=== PATIENT | female | born 1950 | race Hispanic/Latino ===

== ENCOUNTER 2017-06-10 06:22 | Inpatient (IN) | payer MEDICARE, OTHER ==
[2017-06-10 06:30] VITALS: BMI 23.0
[2017-06-10 07:13] LABS: BLOOD UREA NITROGEN 20 mg/dl (7-17); CALCIUM 10.1 mg/dL (8.4-10.2); CARBON DIOXIDE 27 mmol/L (22-30); CHLORIDE 106 mmol/L (98-107); GFR AFRICAN-AMERICAN > 60; GLUCOSE,RANDOM 118 mg/dL (65-105); POTASSIUM 4.2 MMOL/L (3.6-5.0); SODIUM 143 mmol/l (132-148)
--- NOTE | 2017-06-10 07:14 | CP.PCM.HP ---
History of Present Illness - History of Present Illness History of Present Illness: CC: HIP PAIN, HERE FOR L TOTAL HIP HPI: Pleasant 66F PMH OA, MIXED HLD, NIDDM with polyneuropathy, mixed HYPERLIPIDEMIA, Nontoxic multinodular goiter, presents with over 6 months of constant, sharp, moderate to severe hip pain, worsening on ambulation, failing outpatient conservative therapy. L total hip replacement today. METs > 4. Denies any chest pain or dyspnea at rest or on exertion. No problems with anesthesia in the past. No false teeth. Labs, EKG, Chest XR reviewed. Type and Cross pending. Repeating Chem 7. Primary Clearance provided by Dr. Nate Gilbert MD. Patient is low risk for moderate risk procedure, medically stable for surgery at this time. VSS. NAD. ROS: PER HPI ALL OTHER SYSTEMS REVIEWED AND NEGATIVE PMSH: APPENDECTOMY, R PARTIAL KNEE FH: DM SH: TOBACCO - 1/2 PPD 30+ YEARS, denies ETOH, IVDU MEDS: cymbalta 60 mg paroxetine 20 mg simvastatin 40 mg fenofibrate 134 mg pioglitazone-metformin 15/850 mg BID januvia 100 mg citracal and vit d NKDA 98.3 69 119/66 16 99% RA GEN: WDWN, ALERT COOPERATIVE HEENT: NCAT PERRL EOMI HEART: RRR +S1S2 NO MRG LUNG: CTAB NO WRR ABD: SOFT NT ND NO MASS NO HSM EXT: WARM WELL PERFUSED NEURO: AAOX3, SENSATION AND STRENGTH INTACT SKIN: WARM DRY PSYCH: NORMAL MOOD NORMAL AFFECT LABS REVIEWED repeat chem pending type and cross pending Pleasant 66F PMH OA, MIXED HLD, NIDDM with polyneuropathy, mixed HYPERLIPIDEMIA , Nontoxic multinodular goiter, presents with over 6 months of constant, sharp, moderate to severe hip pain, worsening on ambulation, failing outpatient conservative therapy. L total hip replacement today. METs > 4. Denies any chest pain or dyspnea at rest or on exertion. No problems with anesthesia in the past. No false teeth. Labs, EKG, Chest XR reviewed. Type and Cross pending. Repeating Chem 7. Primary Clearance provided by Dr. Sridhar FATIMA. Patient is low risk for moderate risk procedure, medically stable for surgery at this time. VSS. NAD. OA for L total hip L total hip today with Dr. Bledsoe Patient is low risk for moderate risk procedure, medically stable for surgery at this time. cont citracal and vit d NIDDM pioglitazone-metformin 15/850 mg BID januvia 100 mg ACCUCHECKS low ISS Mixed HLD simvastatin 40 mg fenofibrate 134 mg Hx Anxiety/Depression cymbalta 60 mg paroxetine 20 mg VTEppx per Ortho Present on Admission - Present on Admission Any Indicators Present on Admission: No Past Patient History - Past Medical History & Family History Past Medical History?: Yes - Past Social History Smoking Status: Current Some Days Smoker - CARDIAC Hx Cardiac Disorders: Yes Hx Hypercholesterolemia: Yes Other/Comment: hyperlipidemia - PULMONARY Hx Respiratory Disorders: No - NEUROLOGICAL Hx Neurological Disorder: No - HEENT Hx HEENT Problems: No - RENAL Hx Chronic Kidney Disease: No - ENDOCRINE/METABOLIC Hx Diabetes Mellitus Type 2: Yes - HEMATOLOGICAL/ONCOLOGICAL Hx Cancer: Yes (breast) - INTEGUMENTARY Hx Dermatological Problems: No - MUSCULOSKELETAL/RHEUMATOLOGICAL Hx Musculoskeletal Disorders: Yes Hx Arthritis: Yes Hx Osteoporosis: Yes - GASTROINTESTINAL Hx Gastrointestinal Disorders: No - GENITOURINARY/GYNECOLOGICAL Hx Genitourinary Disorders: No - PSYCHIATRIC Hx Depression: Yes - SURGICAL HISTORY Hx Surgeries: Yes Hx Appendectomy: Yes Hx Hysterectomy: Yes (partial) Hx Joint Replacement: Yes (right total knee replacement) Other/Comment: breast reduction. epidurals. fatty cyst removed from thigh and wrist - ANESTHESIA Hx Anesthesia: Yes Hx Anesthesia Reactions: No Hx Malignant Hyperthermia: No Has any member of the family had a problem w/ anesthesia?: No Meds Allergies/Adverse Reactions: Allergies Allergy/AdvReac Type Severity Reaction Status Date / Time No Known Allergies Allergy Verified 06/10/17 06:42 Results - Labs Result Diagrams: 06/10/17 06:50
[2017-06-10] MEDS ORDERED: Lactated Ringer's 1,000 ML IV ONE ×2 (07:20→09:00)
[2017-06-10] MEDS ORDERED: Bacitracin Ointment 30 GM TUBE ONE (07:28)
[2017-06-10] MEDS ORDERED: Succinylcholine 200 mg/10 ml Inj IV ONE (07:29)
[2017-06-10] MEDS ORDERED: Absorbable Gelatin Sponge Size 100 ONE (07:30)
[2017-06-10] MEDS ORDERED: Etomidate 20 mg/10ml Inj IV ONE (07:30)
[2017-06-10] MEDS ORDERED: Phenylephrine 10 mg/ml Inj ONE (07:30)
[2017-06-10] MEDS ORDERED: Thrombin Topical 5,000 IU Spray Kit ONE (07:30)
[2017-06-10] MEDS ORDERED: Lidocaine 4% (Laryng-O-Jet) Kit MM ONE (07:30)
[2017-06-10] MEDS ORDERED: ceFAZolin IV 1 gm in Dextrose 1 GM/50 ML BAG IVPB ONE (07:34)
[2017-06-10] MEDS ORDERED: Midazolam 2 MG/2 ML VIAL ONE (07:56)
[2017-06-10] MEDS ORDERED: Morphine 1 mg/ml preservative-free Inj(Duramorph) ONE (07:58)
[2017-06-10] MEDS ORDERED: Rocuronium 10 mg/ml (5 ml) ONE ×2 (08:54→10:16)
[2017-06-10] MEDS ORDERED: ePHEDrine 50 mg/ml Inj ONE ×2 (08:54→11:46)
[2017-06-10] MEDS ORDERED: Sevoflurane - Inhalation Anesthetic Liq (250 ml) ONE (09:15)
[2017-06-10] MEDS ORDERED: Sodium Chloride 0.9% 500 ML IV ONE (09:20)
[2017-06-10] MEDS ORDERED: Bupivacaine 0.25%-Epinephrine 1:200,000 (30 ml) Inj ONE (11:07)
[2017-06-10] MEDS ORDERED: SENSORCAINE 0.5% W/EPINEPHRINE 50ML MDV IJ ONE (11:08)
[2017-06-10] MEDS ORDERED: Neostigmine Methylsulfate 2 MG/2 ML ML IV ONE (11:50)
[2017-06-10] MEDS ORDERED: Neostigmine Methylsulfate 3mg/3ml Syringe IV ONE (11:50)
[2017-06-10] MEDS ORDERED: Oxycodone/Acetaminophen 5/325 mg Tab PO PRN (12:18)
--- NOTE | 2017-06-10 12:27 | PCM.SURG1 ---
Surgeon's Initial Post Op Note - Surgeon's Notes Surgeon: Pina Bledsoe MD Cellular Phone Repairer: Mary Ellen Barrera PA-C, CRNA Type of Anesthesia: General Endo Anesthesia Administered By: Dr. Sams Pre-Operative Diagnosis: Left hip DJD Operative Findings: intraoperative fluoroscopy used Post-Operative Diagnosis: same Operation Performed: 1. Left total hip replacement, anterior approach. 2. Femoral neck osteotomy. 3. Release iliopsoas tendon. 4. Autograft bone graft femoral neck and acetabulum. 5. Computer navigation Specimen/Specimens Removed: femoral head Estimated Blood Loss: EBL {In ML}: 100 Blood Products Given: N/A Drains Used: No Drains Post-Op Condition: Fair Date of Surgery/Procedure: 06/10/17 Time of Surgery/Procedure: 12:27
[2017-06-10] MEDS ORDERED: Sodium Chloride 0.9% 1,000 ML IV SCH (12:30)
[2017-06-10] MEDS ORDERED: HYDROmorphone 0.5 mg/0.5 ml ISec IVP PRN (12:37)
[2017-06-10] MEDS ORDERED: Lactated Ringer's 1,000 ML IV SCH (12:45)
--- NOTE | 2017-06-10 12:45 | PCM.ANESB3 ---
Femoral Nerve Block - Femoral Nerve Block Date of Procedure: 06/10/17 Anesthesiologist: Flaquita Pre-Procedure Diagnosis: Left Hip OA Post-Procedure Diagnosis: Same Procedure Performed: Femoral Nerve Block Left - Procedure Femoral Nerve Block: The procedure was explained to the patient that it is for the post-operative pain management. Consent was obtained after a thorough discussion with the patient regarding the benefits and possible complications of local anesthetic block of the femoral nerve at the inguinal crease area. The patient was brought to the operating room and standard monitors were applied. Time-out was held with the circulating nurse to confirm the correct surgery and the appropriate block. Under general anesthesia at the conclusion of the procedure, patient was placed in supine position with fully extended lower extremities and the left___ groin exposed. The femoral artery was then carefully palpated. The ultrasound transducer was then applied to this area in the transverse plane and the femoral nerve was visualized lateral to the femoral artery and underneath the fascia iliaca. After thorough identification, the inguinal crease area was prepped with Chloraprep. At this point, a #22 gauge Stimuplex 4-inch needle was inserted immediately lateral to the femoral artery pulse at the inguinal crease and advanced perpendicularly. The needle was inserted to the ultrasound transducer in-plane towards the femoral nerve in a [id number] direction. Needle advancement was performed carefully under direct ultrasound visualization. After negative aspiration, __2___cc of __0.25___% _bupivicaine with 1:200,000 epinephrine was injected and this was followed with __28____ cc of __0.25____ _ % __bupivicaine with 1:200,000 epinephrine . Under ultrasound guidance the local anesthetics were observed spreading below fascia iliaca and around the femoral nerve. The needle was then directed laterally below the facia iliaca above the iliacus muscle in the direction of the lateral femoral cutaneous nerve. After negative aspiration, __2___cc of __0.25___% _bupivicaine with 1:200,000 epinephrine was injected and this was followed with __18____ cc of __0.25 % __bupivicaine with 1:200,000 epinephrine . Under ultrasound guidance the local anesthetics were observed spreading below fascia iliaca in the direction of the lateral femoral cutaneous nerve. The needle was removed intact. The patient had stable vital signs, and was prepared for emergence. The patient tolerated the femoral nerve block well with stable vital signs.
--- NOTE | 2017-06-10 15:34 | RAD ---
PROCEDURE: Left Hip X-ray Radiographs. HISTORY: pt in PACU s/p left THR COMPARISON: None. FINDINGS: BONES: Expected postoperative findings following left RENÉ. JOINTS: Moderate degenerative changes right hip. SOFT TISSUES: Normal. OTHER FINDINGS: None. IMPRESSION: Satisfactory postoperative status.
[2017-06-10] MEDS: ceFAZolin 1 GM in Sodium Chloride 0.9% 100 ML IVPB SCH (17:09)
[2017-06-10] MEDS: Insulin Lispro (humaLOG) 100 Units/ml Inj SC SCH (21:37)
[2017-06-11] MEDS: ceFAZolin 1 GM in Sodium Chloride 0.9% 100 ML IVPB SCH (00:57)
[2017-06-11] MEDS: Morphine 4 MG/ML VIAL IVP PRN ×2 (03:50→14:02)
[2017-06-11 07:12] LABS: HEMATOCRIT 31.3 % (34.0-47.0); MEAN CELL VOLUME 96.9 fl (81.0-99.0); MEAN CORPUSCULAR HEMOGLOBIN 32.4 pg (27.0-31.0); MEAN CORPUSCULAR HGB CONC 33.4 g/dL (33.0-37.0); RED CELL DISTRIBUTION WIDTH 13.9 % (11.5-14.5); WHITE BLOOD COUNT 5.4 K/uL (4.8-10.8)
--- NOTE | 2017-06-11 07:46 | CP.PCM.PN ---
Subjective - Date & Time of Evaluation Date of Evaluation: 06/11/17 Time of Evaluation: 07:44 - Subjective Subjective: Patient states pain is improved with morphine, but that it is wearing off. Denies CP/SOB/dizziness/numbness/tingling/n/v. Objective - Vital Signs/Intake and Output Vital Signs (last 24 hours): Temp Pulse Resp BP Pulse Ox 97.8 F 75 20 118/63 93 L 06/11/17 05:00 06/11/17 05:00 06/11/17 05:00 06/11/17 05:00 06/11/17 05:00 - Medications Medications: Current Medications Aspirin (Ecotrin) 81 mg PO Q12H [facility] Atorvastatin Calcium (Lipitor) 20 mg PO HS [facility] Last Admin: 06/10/17 21:09 Dose: 20 mg Cholecalciferol (Vitamin D) 2,000 iu PO DAILY [facility] Docusate Sodium (Colace) 100 mg PO BID [facility] Last Admin: 06/10/17 17:09 Dose: 100 mg Duloxetine HCl (Cymbalta) 60 mg PO DAILY [facility] Fenofibrate (Tricor) 145 mg PO HS [facility] Last Admin: 06/10/17 21:09 Dose: 145 mg Sodium Chloride (Sodium Chloride 0.9%) 1,000 mls @ 50 mls/hr IV .Q20H [facility] Stop: 06/11/17 12:20 Last Admin: 06/10/17 17:12 Dose: 50 mls/hr Lactated Ringer's (Lactated Ringer's) 1,000 mls @ 100 mls/hr IV .Q10H [facility] Insulin Human Lispro (Humalog) 0 units SC ACHS [facility] PRN Reason: Protocol Last Admin: 06/10/17 21:37 Dose: Not Given Metformin HCl (Glucophage) 850 mg PO BID [facility] Last Admin: 06/10/17 17:10 Dose: 850 mg Morphine Sulfate (Morphine) 2 mg IVP Q4 PRN PRN Reason: Pain, severe (8-10) Last Admin: 06/11/17 03:50 Dose: 2 mg Ondansetron HCl (Zofran Inj) 4 mg IVP Q6 PRN PRN Reason: Nausea/Vomiting Oxycodone/Acetaminophen (Percocet 5/325 Mg Tab) 1 tab PO Q4 PRN PRN Reason: Pain, moderate (4-7) Stop: 06/13/17 12:19 Paroxetine HCl (Paxil) 20 mg PO DAILY [facility] Pioglitazone HCl (Actos) 15 mg PO BID [facility] Last Admin: 06/10/17 17:08 Dose: 15 mg Sitagliptin Phosphate (Januvia) 100 mg PO DAILY [facility] - Labs Labs: 06/11/17 06:40 06/10/17 06:50 - Extremities Exam Additional comments: Left hip: noted expected swelling, TTP to same. +ROM ankle DF/PF, sensation intact, +DP/PT pulses, calves soft NT neg homans, dressing intact, no visible drainage Assessment and Plan (1) Degenerative joint disease of left hip Assessment & Plan: POD#1 s/p left THR, anterior approach -PT/OT -patient requests home with services, has 5 stairs btw levels of house -VTE proph with aspirin 81mg BID per Dr. Bledsoe -[facility] -IS -d/c planning -labs in am -d/w Dr. Bledsoe, agrees with above Status: Acute (2) Acute blood loss anemia Assessment & Plan: pre op hgb 14 hemodynamically stable, monitor Status: Acute (3) Diabetes mellitus Assessment & Plan: monitor BS cont home meds when jace PO Status: Acute
--- NOTE | 2017-06-11 07:50 | CP.PCM.PN ---
Subjective - Date & Time of Evaluation Date of Evaluation: 06/11/17 Time of Evaluation: 10:00 - Subjective Subjective: Patient seen and examined bedside. Complains of pain to left hip radiating to anterior groin. Slightly drowsy . With urinary retention overnight requiring straight catheterization. Hemodynamically stable, Tmax 99.7 Objective - Vital Signs/Intake and Output Vital Signs (last 24 hours): Temp Pulse Resp BP Pulse Ox 97.8 F 75 20 118/63 93 L 06/11/17 05:00 06/11/17 05:00 06/11/17 05:00 06/11/17 05:00 06/11/17 05:00 - Medications Medications: Current Medications Aspirin (Ecotrin) 81 mg PO Q12H REPLACED BY [facility] Atorvastatin Calcium (Lipitor) 20 mg PO HS REPLACED BY [facility] Last Admin: 06/10/17 21:09 Dose: 20 mg Cholecalciferol (Vitamin D) 2,000 iu PO DAILY REPLACED BY [facility] Docusate Sodium (Colace) 100 mg PO BID REPLACED BY [facility] Last Admin: 06/10/17 17:09 Dose: 100 mg Duloxetine HCl (Cymbalta) 60 mg PO DAILY REPLACED BY [facility] Fenofibrate (Tricor) 145 mg PO HS REPLACED BY [facility] Last Admin: 06/10/17 21:09 Dose: 145 mg Sodium Chloride (Sodium Chloride 0.9%) 1,000 mls @ 50 mls/hr IV .Q20H REPLACED BY [facility] Stop: 06/11/17 12:20 Last Admin: 06/10/17 17:12 Dose: 50 mls/hr Lactated Ringer's (Lactated Ringer's) 1,000 mls @ 100 mls/hr IV .Q10H REPLACED BY [facility] Insulin Human Lispro (Humalog) 0 units SC ACHS REPLACED BY [facility] PRN Reason: Protocol Last Admin: 06/10/17 21:37 Dose: Not Given Metformin HCl (Glucophage) 850 mg PO BID REPLACED BY [facility] Last Admin: 06/10/17 17:10 Dose: 850 mg Morphine Sulfate (Morphine) 2 mg IVP Q4 PRN PRN Reason: Pain, severe (8-10) Last Admin: 06/11/17 03:50 Dose: 2 mg Ondansetron HCl (Zofran Inj) 4 mg IVP Q6 PRN PRN Reason: Nausea/Vomiting Oxycodone/Acetaminophen (Percocet 5/325 Mg Tab) 1 tab PO Q4 PRN PRN Reason: Pain, moderate (4-7) Stop: 06/13/17 12:19 Paroxetine HCl (Paxil) 20 mg PO DAILY REPLACED BY [facility] Pioglitazone HCl (Actos) 15 mg PO BID REPLACED BY [facility] Last Admin: 06/10/17 17:08 Dose: 15 mg Sitagliptin Phosphate (Januvia) 100 mg PO DAILY REPLACED BY [facility] - Labs Labs: 06/11/17 06:40 06/10/17 06:50 - Constitutional Appears: Non-toxic, No Acute Distress, Other (drowsy ) - Head Exam Head Exam: ATRAUMATIC, NORMAL INSPECTION, NORMOCEPHALIC - Eye Exam Eye Exam: EOMI, Normal appearance, PERRL Pupil Exam: NORMAL ACCOMODATION - ENT Exam ENT Exam: Mucous Membranes Moist, Normal Exam - Neck Exam Neck Exam: Full ROM, Normal Inspection - Respiratory Exam Respiratory Exam: Clear to Ausculation Bilateral, NORMAL BREATHING PATTERN. absent: Rales, Rhonchi, Wheezes - Cardiovascular Exam Cardiovascular Exam: REGULAR RHYTHM, RRR, +S1, +S2. absent: JVD - GI/Abdominal Exam GI & Abdominal Exam: Soft, Normal Bowel Sounds. absent: Distended, Guarding, Tenderness, Rebound Additional comments: suprapubic fullness - Rectal Exam Rectal Exam: Deferred - Extremities Exam Extremities Exam: absent: Pedal Edema Additional comments: left hip surgical incision with acquacell dressing in place - Back Exam Back Exam: NORMAL INSPECTION - Neurological Exam Neurological Exam: Alert, Awake, CN II-XII Intact, Oriented x3 Additional comments: drowsy - Psychiatric Exam Psychiatric exam: Normal Affect - Skin Skin Exam: Dry, Pallor, Warm Assessment and Plan - Assessment and Plan (Free Text) Assessment: 66F PMH OA, MIXED HLD, NIDDM with polyneuropathy, mixed HYPERLIPIDEMIA, Nontoxic multinodular goiter, presented with over 6 months of constant, sharp, moderate to severe hip pain, worsening on ambulation, failing outpatient conservative therapy.She is s/p L total hip replacement with Dr. Duval 06/10 1.Osteoarthritis of L hip s/p left THR # POD 1 pain is controlled Ortho on consult Continue pain management Start PT DVt prophylaxis with ADSA 81 mg PO BID incentive spirometry 2.NIDDM controlled continue home meds Accuchecks, insulin coverage diabetic diet 3.Acute blood loss anemia Hgb dropped to 10 continue to monitor 4.Mixed HLD simvastatin 40 mg fenofibrate 134 mg 5.Anxiety/Depression cymbalta 60 mg paroxetine 20 mg 6.VTEppx ASa 81 mg po BID
[2017-06-11 08:04] LABS: BLOOD UREA NITROGEN 14 mg/dl (7-17); CALCIUM 8.5 mg/dL (8.4-10.2); CARBON DIOXIDE 25 mmol/L (22-30); CHLORIDE 105 mmol/L (98-107); GFR AFRICAN-AMERICAN > 60; GLUCOSE,RANDOM 129 mg/dL (65-105); POTASSIUM 3.7 MMOL/L (3.6-5.0); SODIUM 136 mmol/l (132-148)
[2017-06-11] MEDS: Insulin Lispro (humaLOG) 100 Units/ml Inj SC SCH ×4 (08:16→21:54)
--- NOTE | 2017-06-11 08:47 | OP ---
PROCEDURE DATE: 06/10/2017 PREOPERATIVE DIAGNOSIS: Primary osteoarthritis of the left hip. POSTOPERATIVE DIAGNOSIS: Primary osteoarthritis of the left hip. PROCEDURE: 1. Left total hip replacement, arthroplasty, anterior approach. 2. Femoral neck osteotomy. 3. Release of iliopsoas tendon. 4. Autograft bone graft to the acetabulum and proximal femur. 5. Computer navigation with [employer]. SURGEON: Ji Bledsoe M.D. SHOE LASTER: Giovana Reaves. SECOND INSPECTOR ELEVATORS: Suraj Arvizu PA-C. TYPE OF ANESTHESIA: Spinal and general anesthesia. ANESTHESIA ADMINISTERED BY: Kemal Sams MD ESTIMATED BLOOD LOSS: 105 mL. COMPLICATIONS: None. DRAINS: None. OPERATIVE INDICATIONS: Shiloh Solano is a woman who has severe left hip pain and pain in the groin. The patient had a spinal opinion when the spinal surgeon claimed that the patient requires replacement arthroplasty. Pros, cons, risks, and benefits of total hip replacement were discussed. The concept of leg length inequality, mechanical failure, infection, thromboembolic disease, secondary or tertiary surgery was discussed. The patient can no longer withstand the discomfort and wished the surgery to be accomplished. Informed consent is obtained in the holding area and in the office after myself and in the presence of her ex-, Randy Gonzalez. DESCRIPTION OF PROCEDURE: After having obtained the informed consent, after having identified the site and side of the procedure, a critical pause/time-out, after the satisfactory induction of the anesthetic, the patient is identified as Shiloh Solano. She is placed in the AMIS traction position. The left lower extremity is prepped and draped in usual fashion for lower extremity surgery. I had explained to the patient that she will have incisions on the contralateral right hip for the computer navigation. This having been accomplished, under the surgeon's direction, the fluoroscope is positioned. Video images are generated, and therapeutic decisions are made therefrom. The patient began on the procedure of a short left lower extremity by approximately 1/2 inch. Attempt will be made to make that up. This having been accomplished, the lower extremity is prepped and free draped in usual fashion for lower extremity surgery. The right pelvis is draped as well. This having been accomplished, using a #11 blade, two fingerbreadths posterior to the ASIS, the first pin is introduced, second pin is introduced through the guide, and the mount of the camera is introduced. This having been accomplished, the camera mount is adjusted appropriately. Attention is turned to the left hip. After sterilely prepping and draping, after having identified the side, site, and procedure, and a critical pause/timeout, the incision is described 3 fingerbreadths posterior to the ASIS, 1 fingerbreadth distal and 4 fingerbreadths distal to that. This is approximately 4.5 to 5 inch incision, the skin incision is carried down through the skin and subcutaneous tissue. The fascia is identified and is divided using the electrocautery. The tensor fascia and femoris muscle was taken down from the fascia and the Medacta retractor is placed. At this point in time, the fat pad over it is identified and released and the reflected head of rectus femoris is released. At this point, the fascia below the rectus femoris muscle is developed and the retractor is placed again deeper. At this point in time, the anterolateral circumflex vessels are identified and controlled, this is controlled with the Aquamantys and then they are divided and they are controlled with suture ligature. This having been accomplished, the triangular capsule with the lower extremity in external rotation, an incision is described far laterally superficial distal to the acetabulum and in a triangular fashion going distally to the lesser tuberosity. This is carried back laterally and the capsular flap is tagged. This having accomplished, the trochanteric tubercle is identified and the trochanter is mildly skeletonized through the position of the registration tack. Registration tack is introduced in an anterolateral fashion. At this point in time, the registration tack is accomplished. At this point in time under the surgeon's direction, fluoroscope is positioned, femoral neck osteotomy is accomplished and is divided. The femoral neck is removed from the acetabulum and this is removed. Great care is taken to place the Medacta retractors. A Ray-Jennifer sponge is placed posteriorly. Femoral neck osteotomy is accomplished. This having been accomplished, the acetabulum is debrided, the pulvinar is debrided, the acetabulum is exposed. The anterior and posterior labrum are resected. This having been accomplished, reaming starts out with 42 mm up to 48 mm. The pulvinar is removed. The medial reaming is accomplished with the posterior reaming and then the reaming in the appropriate position of approximately 45 degrees and 15-20 degrees. This having been accomplished, reaming commences. Autograft bone graft is saved. At this point in time,trialing is accomplished. Under surgeon's direction, the fluoroscope is positioned and found to be in excellent position. At this point in time, the 48-mm reamer is loaded and computer navigation is accomplished using the Intellijoint with abduction of approximately 44 degrees and anteversion of approximately 16 degrees. This having been accomplished, a cup is impacted and at this point in time, the computer navigation continues. Attention is now turned to the femur. The pubofemoral ligament is released with the femur in external rotation. The ischiofemoral ligament is released as is the area in the conjoint tendon in the piriformis fossa. This is released and at this point in time, the trochanteric splint is accomplished. The position of the cup is guaranteed and the verification is offered on the Intellijoint. This having been accomplished, the femur is introduced. The rat-tail rasp is introduced. Reaming is carried up to #4, broaching to #4 and the hip is reduced and found to be stable in all planes with the dual mobility construct with the standard neck and neutral head and 48-mm outer bearing. This having been accomplished, the stem femoral component is impacted. The ceramic is impacted with the outer bearing, is reduced and found to be stable in all planes. Wound is thoroughly irrigated. Position on the x-ray reveals that the left lower extremity is lengthened just a bit, which was our preoperative intent. Wound is thoroughly irrigated. It should be noted that prior to impaction, the cup autograft bone grafting had been accomplished. After release of the pubofemoral ligament, the iliopsoas tendon is released as well. This having been accomplished, the capsule is replaced. The lateral musculature is repaired using Vicryl. Closure of the rectus muscle sheath, fascia is with 0 Quill followed by 0 Quill, 2-0 Vicryl, and myriam for skin drain is employed. Silvio Buck compression dressing is applied. Ji Bledsoe MD
[2017-06-11 17:19] VITALS: O2SAT 95
--- NOTE | 2017-06-12 07:12 | CP.PCM.PN ---
Subjective - Date & Time of Evaluation Date of Evaluation: 06/12/17 Time of Evaluation: 07:09 - Subjective Subjective: ortho f/u Dr. Bledsoe Patient states pain in hip is still severe at times. C/o feeling tired. Denies CP/SOB/dizziness/palp/numbness/tingling Objective - Vital Signs/Intake and Output Vital Signs (last 24 hours): Temp Pulse Resp BP Pulse Ox 99.4 F 82 20 116/63 95 06/11/17 17:18 06/11/17 17:18 06/11/17 17:18 06/11/17 17:18 06/11/17 17:18 - Medications Medications: Current Medications Aspirin (Ecotrin) 81 mg PO Q12H [facility] Last Admin: 06/11/17 21:50 Dose: 81 mg Atorvastatin Calcium (Lipitor) 20 mg PO HS [facility] Last Admin: 06/11/17 21:50 Dose: 20 mg Cholecalciferol (Vitamin D) 2,000 iu PO DAILY [facility] Last Admin: 06/11/17 08:21 Dose: 2,000 iu Docusate Sodium (Colace) 100 mg PO BID [facility] Last Admin: 06/11/17 16:42 Dose: 100 mg Duloxetine HCl (Cymbalta) 60 mg PO DAILY [facility] Last Admin: 06/11/17 08:20 Dose: 60 mg Fenofibrate (Tricor) 145 mg PO HS [facility] Last Admin: 06/11/17 21:50 Dose: 145 mg Lactated Ringer's (Lactated Ringer's) 1,000 mls @ 100 mls/hr IV .Q10H [facility] Insulin Human Lispro (Humalog) 0 units SC ACHS [facility] PRN Reason: Protocol Last Admin: 06/11/17 21:54 Dose: Not Given Metformin HCl (Glucophage) 850 mg PO BID [facility] Last Admin: 06/11/17 16:42 Dose: 850 mg Morphine Sulfate (Morphine) 2 mg IVP Q4 PRN PRN Reason: Pain, severe (8-10) Last Admin: 06/11/17 14:02 Dose: 2 mg Ondansetron HCl (Zofran Inj) 4 mg IVP Q6 PRN PRN Reason: Nausea/Vomiting Oxycodone/Acetaminophen (Percocet 5/325 Mg Tab) 1 tab PO Q4 PRN PRN Reason: Pain, moderate (4-7) Stop: 06/13/17 12:19 Last Admin: 06/11/17 08:14 Dose: 1 tab Paroxetine HCl (Paxil) 20 mg PO DAILY [facility] Last Admin: 06/11/17 08:21 Dose: 20 mg Pioglitazone HCl (Actos) 15 mg PO BID [facility] Last Admin: 06/11/17 16:42 Dose: 15 mg Sitagliptin Phosphate (Januvia) 100 mg PO DAILY [facility] - Labs Labs: 06/11/17 06:40 06/11/17 06:40 - Extremities Exam Additional comments: LLE: swelling slightly improved, control room tender, moving ankle more freely today. + ROM ankle/toes, sensation intact, +DP/PT pulses, calves soft NT neg homans, dressing intact, no erythema Assessment and Plan (1) Degenerative joint disease of left hip Assessment & Plan: POD#2 s/p left anterior THR PT/OT patient now states preference is rehab, referral pending VTE proph with ASA encourage OOB f/u labs d/c planning d/w Dr. Bledsoe, agrees with above Status: Acute (2) Acute blood loss anemia Assessment & Plan: f Status: Acute (3) Diabetes mellitus Status: Chronic
[2017-06-12] MEDS: Insulin Lispro (humaLOG) 100 Units/ml Inj SC SCH ×2 (07:30→11:35)
[2017-06-12 08:08] VITALS: BP 112/64; PULSE 87; RESP 19; TEMP 97.8
--- NOTE | 2017-06-12 08:49 | RAD ---
PROCEDURE: Fluoroscopy up to 1 hr. HISTORY: COMPARISON: None TECHNIQUE: Standard protocol for this study/examination. FINDINGS: Total fluoroscopic time (continuous mode) utilized during the procedure: 25.9 seconds. IMPRESSION: Less than 1 hr fluoroscopic time utilized during performance of the procedure.
[2017-06-12] MEDS ORDERED: PIOGLITAZONE HCL PO SCH (09:00)
[2017-06-12] MEDS ORDERED: METFORMIN HCL PO SCH (09:00)
--- NOTE | 2017-06-12 11:34 | CP.PCM.DIS ---
Provider - Provider Date of Admission: 06/10/17 12:18 Attending physician: Jayden March MD Primary care physician: Ji Bledsoe III, MD Consults: Ortho : DR Bledsoe Time Spent in preparation of Discharge (in minutes): 25 Diagnosis - Discharge Diagnosis (1) Primary osteoarthritis of left hip Status: Chronic (2) Status post THR (total hip replacement) Status: Acute (3) Acute blood loss anemia Status: Acute (4) Diabetes mellitus Status: Chronic Hospital Course - Lab Results Lab Results: Most Recent Lab Values WBC 5.4 K/uL (4.8-10.8) 06/11/17 06:40 RBC 3.23 Mil/uL (3.80-5.20) L 06/11/17 06:40 Hgb 10.5 g/dL (12.0-16.0) L 06/11/17 06:40 Hct 31.3 % (34.0-47.0) L 06/11/17 06:40 MCV 96.9 fl (81.0-99.0) 06/11/17 06:40 MCH 32.4 pg (27.0-31.0) H 06/11/17 06:40 MCHC 33.4 g/dL (33.0-37.0) 06/11/17 06:40 RDW 13.9 % (11.5-14.5) 06/11/17 06:40 Plt Count 164 K/uL (130-400) 06/11/17 06:40 Sodium 136 mmol/l (132-148) 06/11/17 06:40 Potassium 3.7 MMOL/L (3.6-5.0) 06/11/17 06:40 Chloride 105 mmol/L (98-107) 06/11/17 06:40 Carbon Dioxide 25 mmol/L (22-30) 06/11/17 06:40 Anion Gap 10 (10-20) 06/11/17 06:40 BUN 14 mg/dl (7-17) 06/11/17 06:40 Creatinine 0.7 mg/dL (0.7-1.2) 06/11/17 06:40 Est GFR ( Amer) > 60 06/11/17 06:40 Est GFR (Non-Af Amer) > 60 06/11/17 06:40 POC Glucose (mg/dL) 218 mg/dL (65-110) H 06/12/17 11:14 Random Glucose 129 mg/dL (65-105) H 06/11/17 06:40 Calcium 8.5 mg/dL (8.4-10.2) 06/11/17 06:40 Blood Type O POSITIVE 06/10/17 06:50 Blood Type Confirm O POSITIVE 06/10/17 07:20 Antibody Screen Negative 06/10/17 06:50 Crossmatch See Detail 06/10/17 06:50 BBK History Checked No verified bt 06/10/17 06:50 - Hospital Course Hospital Course: 66F PMH OA, MIXED HLD, NIDDM with polyneuropathy, mixed HYPERLIPIDEMIA, Nontoxic multinodular goiter, presented with over 6 months of constant, sharp, moderate to severe hip pain, worsening on ambulation, failing outpatient conservative therapy.She is s/p L total hip replacement with Dr. Duval 06/10 1.Primary Osteoarthritis of L hip s/p left THR pain is controlled Ortho on consult and following pt Continue pain management PT/OT DVt prophylaxis with ASA 81 mg PO BID incentive spirometry d/c to TCU for further Rehab 2.NIDDM type II controlled continue home meds Accuchecks, insulin coverage diabetic diet 3.Acute blood loss anemia Hgb dropped to 10 continue to monitor Venofer B12 shot start Ferrous PO 4.Mixed Hyperlipidemia simvastatin 40 mg fenofibrate 134 mg 5.Anxiety/Depression cymbalta 60 mg paroxetine 20 mg 6.VTE ppx ASa 81 mg po BID Discharge Exam - Head Exam Head Exam: ATRAUMATIC, NORMAL INSPECTION, NORMOCEPHALIC - Eye Exam Eye Exam: EOMI, Normal appearance, PERRL Pupil Exam: NORMAL ACCOMODATION - ENT Exam ENT Exam: Mucous Membranes Moist, Normal External Ear Exam - Neck Exam Neck exam: Full Rom - Respiratory Exam Respiratory Exam: NORMAL BREATHING PATTERN. absent: Respiratory Distress - Cardiovascular Exam Cardiovascular Exam: REGULAR RHYTHM, +S1, +S2 - GI/Abdominal Exam GI & Abdominal Exam: Normal Bowel Sounds, Soft. absent: Tenderness - Extremities Exam Extremities exam: normal capillary refill, pedal pulses present Additional comments: no calf tenderness left hip dressing intact - Back Exam Back exam: FULL ROM. absent: CVA tenderness (L), CVA tenderness (R) - Neurological Exam Neurological exam: Alert, CN II-XII Intact, Oriented x3, Reflexes Normal - Psychiatric Exam Psychiatric exam: Normal Affect, Normal Mood - Skin Skin Exam: Dry, Normal Color, Warm Discharge Plan - Discharge Medications Prescriptions: Ferrous Sulfate [Feosol] 325 mg PO BID #1 tab - Follow Up Plan Condition: GOOD Disposition: TRANSF TO SNF Additional Instructions: d/c to TCU Referrals: Ji Bledsoe III, MD [Primary Care Provider] -
== END 2017-06-12 14:09 | DRG 470 ==
LOC: H.OPSURG 06:22 → H.MEDSURG1 12:18
PROVIDERS: ADMIT Hospitalist; ATTEND Hospitalist
PROC: 3E0T33Z Introduction of Anti-inflammatory into Peripheral Nerves and Plexi, Percutaneous Approach (ICD-10-PCS; 2017-06-10)
PROC: 0SRB03Z Replacement of Left Hip Joint with Ceramic Synthetic Substitute, Open Approach (ICD-10-PCS; principal; 2017-06-10 07:45)
PROC: 3E0T3BZ Introduction of Anesthetic Agent into Peripheral Nerves and Plexi, Percutaneous Approach (ICD-10-PCS; 2017-06-10 07:45)
DX: M16.12 Unilateral primary osteoarthritis, left hip (principal); D62 Acute posthemorrhagic anemia; E11.42 Type 2 diabetes mellitus with diabetic polyneuropathy; E78.2 Mixed hyperlipidemia; R33.9 Retention of urine, unspecified; F32.9 Major depressive disorder, single episode, unspecified; F41.9 Anxiety disorder, unspecified; E04.2 Nontoxic multinodular goiter; Z87.891 Personal history of nicotine dependence; Z79.82 Long term (current) use of aspirin

== ENCOUNTER 2017-06-12 13:38 | Inpatient (IN) | payer OTHER ==
[2017-06-12 14:22] VITALS: RESP 20
[2017-06-12 14:25] VITALS: BMI 24.0
[2017-06-12] MEDS: Oxycodone/Acetaminophen 5/325 mg Tab PO PRN (16:41)
[2017-06-12] MEDS: Insulin Regular 100 units/ml SC SCH ×2 (16:48→22:31)
[2017-06-13] MEDS: Oxycodone/Acetaminophen 5/325 mg Tab PO PRN ×3 (07:19→21:44)
[2017-06-13] MEDS: Insulin Regular 100 units/ml SC SCH ×4 (07:43→21:46)
--- NOTE | 2017-06-13 10:56 | CP.PCM.HP ---
History of Present Illness - History of Present Illness History of Present Illness: CC: s/p L TOTAL HIP HPI: Pleasant 66F PMH OA, MIXED HLD, NIDDM with polyneuropathy, mixed HYPERLIPIDEMIA, Nontoxic multinodular goiter, presents with over 6 months of constant, sharp, moderate to severe hip pain, worsening on ambulation, failing outpatient conservative therapy. L total hip replacement today. METs > 4. Denies any chest pain or dyspnea at rest or on exertion. No problems with anesthesia in the past. No false teeth. Labs, EKG, Chest XR reviewed. Type and Cross pending. Repeating Chem 7. Primary Clearance provided by Dr. Nate Gilbert MD. Patient is low risk for moderate risk procedure. Pt is s/p L THR with Dr. Bledsoe. To TCU for further rehab. VSS. NAD. ROS: PER HPI ALL OTHER SYSTEMS REVIEWED AND NEGATIVE PMSH: APPENDECTOMY, R PARTIAL KNEE FH: DM SH: TOBACCO - 1/2 PPD 30+ YEARS, denies ETOH, IVDU MEDS: cymbalta 60 mg paroxetine 20 mg simvastatin 40 mg fenofibrate 134 mg pioglitazone-metformin 15/850 mg BID januvia 100 mg citracal and vit d NKDA vitals reviewed GEN: WDWN, ALERT COOPERATIVE HEENT: NCAT PERRL EOMI HEART: RRR +S1S2 NO MRG LUNG: CTAB NO WRR ABD: SOFT NT ND NO MASS NO HSM EXT: WARM WELL PERFUSED dressing in place NEURO: AAOX3, SENSATION AND STRENGTH INTACT SKIN: WARM DRY PSYCH: NORMAL MOOD NORMAL AFFECT LABS REVIEWED 66F PMH OA, MIXED HLD, NIDDM with polyneuropathy, mixed HYPERLIPIDEMIA, Nontoxic multinodular goiter, presented with over 6 months of constant, sharp, moderate to severe hip pain, worsening on ambulation, failing outpatient conservative therapy. She is s/p L total hip replacement with Dr. Duval 1.Primary Osteoarthritis of L hip: s/p left THR pain is controlled Ortho on consult and following pt Continue pain management PT/OT DVt prophylaxis with ASA 81 mg PO BID incentive spirometry TCU for further Rehab 2.NIDDM type II controlled continue home meds Accuchecks, insulin coverage diabetic diet 3.Acute blood loss anemia Hgb dropped to 10 continue to monitor Venofer B12 shot start Ferrous PO 4.Mixed Hyperlipidemia simvastatin 40 mg fenofibrate 134 mg 5.Anxiety/Depression cymbalta 60 mg paroxetine 20 mg 6.VTE ppx ASa 81 mg po BID Present on Admission - Present on Admission Any Indicators Present on Admission: No Past Patient History - Past Medical History & Family History Past Medical History?: Yes - Past Social History Smoking Status: Former Smoker - CARDIAC Hx Hypercholesterolemia: Yes - PULMONARY Hx Respiratory Disorders: No - NEUROLOGICAL Hx Neurological Disorder: No - HEENT Hx HEENT Problems: No - RENAL Hx Chronic Kidney Disease: No - ENDOCRINE/METABOLIC Hx Diabetes Mellitus Type 2: Yes - HEMATOLOGICAL/ONCOLOGICAL Hx Cancer: Yes (breast) - INTEGUMENTARY Hx Dermatological Problems: No - MUSCULOSKELETAL/RHEUMATOLOGICAL Hx Arthritis: Yes - GASTROINTESTINAL Hx Gastrointestinal Disorders: No - GENITOURINARY/GYNECOLOGICAL Hx Genitourinary Disorders: No - PSYCHIATRIC Hx Depression: Yes Hx Substance Use: No - SURGICAL HISTORY Hx Surgeries: Yes Hx Appendectomy: Yes Hx Hysterectomy: Yes (partial) Hx Joint Replacement: Yes (right total knee replacement) Other/Comment: breast reduction. epidurals. fatty cyst removed from thigh and wrist - ANESTHESIA Hx Anesthesia: Yes Hx Anesthesia Reactions: No Hx Malignant Hyperthermia: No Meds Allergies/Adverse Reactions: Allergies Allergy/AdvReac Type Severity Reaction Status Date / Time No Known Allergies Allergy Verified 06/12/17 14:24 Results - Vital Signs Recent Vital Signs: Last Vital Signs Temp 98.1 F 06/13/17 08:03 Pulse 83 06/13/17 08:03 Resp 20 06/13/17 08:03 BP 111/53 L 06/13/17 08:03 Pulse Ox 94 L 06/13/17 08:03 - Labs Labs: Laboratory Results - last 24 hr 06/12/17 06/12/17 06/13/17 16:37 20:47 06:30 POC Glucose (mg/dL) 182 H 203 H 176 H
[2017-06-14] MEDS: Insulin Regular 100 units/ml SC SCH ×4 (08:01→21:11)
--- NOTE | 2017-06-14 08:05 | CP.PCM.CON ---
History of Present Illness - History of Present Illness History of Present Illness: 66 year old female admitted for subacute rehab after left hip replacement with problems of severe arthritis and PMH of OA, NIDDm, poluneuropathy, and hyperlipiemia Review of Systems - Musculoskeletal Musculoskeletal: Abnormal Gait, Limited Range of Motion - Neurological Neurological: Abnormal Gait, Lack of Coordination, Tingling Past Patient History - Past Medical History & Family History Past Medical History?: Yes - Past Social History Smoking Status: Former Smoker - CARDIAC Hx Hypercholesterolemia: Yes - PULMONARY Hx Respiratory Disorders: No - NEUROLOGICAL Hx Neurological Disorder: No - HEENT Hx HEENT Problems: No - RENAL Hx Chronic Kidney Disease: No - ENDOCRINE/METABOLIC Hx Diabetes Mellitus Type 2: Yes - HEMATOLOGICAL/ONCOLOGICAL Hx Cancer: Yes (breast) - INTEGUMENTARY Hx Dermatological Problems: No - MUSCULOSKELETAL/RHEUMATOLOGICAL Hx Arthritis: Yes - GASTROINTESTINAL Hx Gastrointestinal Disorders: No - GENITOURINARY/GYNECOLOGICAL Hx Genitourinary Disorders: No - PSYCHIATRIC Hx Depression: Yes Hx Substance Use: No - SURGICAL HISTORY Hx Surgeries: Yes Hx Appendectomy: Yes Hx Hysterectomy: Yes (partial) Hx Joint Replacement: Yes (right total knee replacement) Other/Comment: breast reduction. epidurals. fatty cyst removed from thigh and wrist - ANESTHESIA Hx Anesthesia: Yes Hx Anesthesia Reactions: No Hx Malignant Hyperthermia: No Meds Allergies/Adverse Reactions: Allergies Allergy/AdvReac Type Severity Reaction Status Date / Time No Known Allergies Allergy Verified 06/12/17 14:24 - Medications Medications: Current Medications Aspirin (Ecotrin) 81 mg PO Q12 [facility] Last Admin: 06/13/17 21:45 Dose: 81 mg Atorvastatin Calcium (Lipitor) 20 mg PO [facility] Last Admin: 06/13/17 21:45 Dose: 20 mg Cholecalciferol (Vitamin D) 2,000 iu PO DAILY [facility] Last Admin: 06/13/17 08:40 Dose: 2,000 iu Docusate Sodium (Colace) 100 mg PO BID [facility] Last Admin: 06/13/17 17:20 Dose: 100 mg Duloxetine HCl (Cymbalta) 60 mg PO DAILY [facility] Last Admin: 06/13/17 08:38 Dose: 60 mg Fenofibrate (Tricor) 145 mg PO HS [facility] Last Admin: 06/13/17 21:43 Dose: 145 mg Ferrous Sulfate (Feosol) 325 mg PO BID [facility] Last Admin: 06/13/17 17:20 Dose: 325 mg Insulin Human Regular (Humulin R) 0 units SC ACHS [facility] PRN Reason: Protocol Last Admin: 06/14/17 08:01 Dose: 1 unit Lactulose (Enulose) 20 gm PO DAILY PRN PRN Reason: Constipation Last Admin: 06/12/17 16:42 Dose: 20 gm Metformin HCl (Glucophage) 850 mg PO BID [facility] Last Admin: 06/13/17 17:21 Dose: 850 mg Ondansetron HCl (Zofran Inj) 4 mg IVP Q6 PRN PRN Reason: Nausea/Vomiting Oxycodone/Acetaminophen (Percocet 5/325 Mg Tab) 1 tab PO Q4 PRN PRN Reason: Pain, moderate (4-7) Stop: 06/15/17 14:50 Last Admin: 06/13/17 21:44 Dose: 1 tab Paroxetine HCl (Paxil) 20 mg PO DAILY [facility] Last Admin: 06/13/17 08:40 Dose: 20 mg Pioglitazone HCl (Actos) 15 mg PO BID [facility] Last Admin: 06/13/17 17:00 Dose: 15 mg Sitagliptin Phosphate (Januvia) 100 mg PO DAILY [facility] Last Admin: 06/13/17 08:39 Dose: 100 mg Physical Exam - Head Exam Head Exam: ATRAUMATIC, NORMAL INSPECTION, NORMOCEPHALIC - Eye Exam Eye Exam: EOMI, Normal appearance Pupil Exam: NORMAL ACCOMODATION - ENT Exam ENT Exam: Mucous Membranes Moist - Neck Exam Neck exam: Positive for: Normal Inspection - Respiratory Exam Respiratory Exam: Clear to Auscultation Bilateral, NORMAL BREATHING PATTERN - Cardiovascular Exam Cardiovascular Exam: REGULAR RHYTHM - GI/Abdominal Exam GI & Abdominal Exam: Normal Bowel Sounds - Rectal Exam Rectal Exam: NORMAL INSPECTION - Exam External exam: NORMAL EXTERNAL EXAM - Extremities Exam Extremities exam: Positive for: normal inspection Additional comments: left left weakness, muscle strenght 3/5 - Back Exam Back exam: NORMAL INSPECTION - Neurological Exam Neurological exam: Alert, CN II-XII Intact - Psychiatric Exam Psychiatric exam: Normal Affect, Normal Mood - Skin Skin Exam: Dry, Normal Color Results - Vital Signs Recent Vital Signs: Last Vital Signs Temp 98.1 F 06/13/17 19:51 Pulse 85 06/13/17 19:51 Resp 20 06/13/17 19:51 BP 114/54 L 06/13/17 19:51 Pulse Ox 99 06/13/17 19:51 - Labs Labs: Laboratory Results - last 24 hr 06/13/17 06/13/17 06/13/17 11:20 15:45 21:13 POC Glucose (mg/dL) 218 H 123 H 155 H 06/14/17 05:18 POC Glucose (mg/dL) 180 H Assessment & Plan (1) Acute blood loss anemia Status: Acute (2) Degenerative joint disease of left hip Status: Acute (3) Status post THR (total hip replacement) Assessment and Plan: plan for pain management, physical, occupational, rec therapy for rom, strenghtening, transfers and gait training for subacute rehab plan for Dc home Status: Acute (4) Diabetes mellitus Status: Chronic (5) Primary osteoarthritis of left hip Status: Chronic
[2017-06-14] MEDS: Oxycodone/Acetaminophen 5/325 mg Tab PO PRN ×3 (10:13→23:50)
--- NOTE | 2017-06-14 19:53 | CP.PCM.PN ---
Subjective - Date & Time of Evaluation Date of Evaluation: 06/14/17 Time of Evaluation: 12:00 - Subjective Subjective: no acute complaints of hip pain Objective - Vital Signs/Intake and Output Vital Signs (last 24 hours): Temp Pulse Resp BP Pulse Ox 97.9 F 91 H 20 108/50 L 100 06/14/17 19:43 06/14/17 19:43 06/14/17 19:43 06/14/17 19:43 06/14/17 19:43 - Medications Medications: Current Medications Aspirin (Ecotrin) 81 mg PO Q12 [facility] Last Admin: 06/14/17 08:45 Dose: 81 mg Atorvastatin Calcium (Lipitor) 20 mg PO HS [facility] Last Admin: 06/13/17 21:45 Dose: 20 mg Cholecalciferol (Vitamin D) 2,000 iu PO DAILY [facility] Last Admin: 06/14/17 08:46 Dose: 2,000 iu Docusate Sodium (Colace) 100 mg PO BID [facility] Last Admin: 06/14/17 16:59 Dose: 100 mg Duloxetine HCl (Cymbalta) 60 mg PO DAILY [facility] Last Admin: 06/14/17 08:45 Dose: 60 mg Fenofibrate (Tricor) 145 mg PO HS [facility] Last Admin: 06/13/17 21:43 Dose: 145 mg Ferrous Sulfate (Feosol) 325 mg PO BID [facility] Last Admin: 06/14/17 16:59 Dose: 325 mg Insulin Human Regular (Humulin R) 0 units SC [facility] PRN Reason: Protocol Last Admin: 06/14/17 16:58 Dose: 1 unit Lactulose (Enulose) 20 gm PO DAILY PRN PRN Reason: Constipation Last Admin: 06/12/17 16:42 Dose: 20 gm Metformin HCl (Glucophage) 850 mg PO BID [facility] Last Admin: 06/14/17 16:59 Dose: 850 mg Ondansetron HCl (Zofran Inj) 4 mg IVP Q6 PRN PRN Reason: Nausea/Vomiting Oxycodone/Acetaminophen (Percocet 5/325 Mg Tab) 1 tab PO Q4 PRN PRN Reason: Pain, moderate (4-7) Stop: 06/15/17 14:50 Last Admin: 06/14/17 14:13 Dose: 1 tab Paroxetine HCl (Paxil) 20 mg PO DAILY [facility] Last Admin: 06/14/17 08:46 Dose: 20 mg Pioglitazone HCl (Actos) 15 mg PO BID [facility] Last Admin: 06/14/17 16:59 Dose: 15 mg Sitagliptin Phosphate (Januvia) 100 mg PO DAILY [facility] Last Admin: 06/14/17 08:45 Dose: 100 mg - Head Exam Head Exam: ATRAUMATIC, NORMAL INSPECTION, NORMOCEPHALIC - Eye Exam Eye Exam: EOMI, Normal appearance Pupil Exam: NORMAL ACCOMODATION, PERRL - ENT Exam ENT Exam: Mucous Membranes Moist, Normal Exam - Neck Exam Neck Exam: Full ROM, Normal Inspection - Respiratory Exam Respiratory Exam: Clear to Ausculation Bilateral, NORMAL BREATHING PATTERN - Cardiovascular Exam Cardiovascular Exam: REGULAR RHYTHM - GI/Abdominal Exam GI & Abdominal Exam: Normal Bowel Sounds - Rectal Exam Rectal Exam: NORMAL INSPECTION - Exam External exam: NORMAL EXTERNAL EXAM - Extremities Exam Extremities Exam: Normal Capillary Refill, Normal Inspection - Back Exam Back Exam: CVA tenderness (R) - Neurological Exam Neurological Exam: Alert, Awake Neuro motor strength exam: Left Upper Extremity: 4, Right Upper Extremity: 4, Left Lower Extremity: 3, Right Lower Extremity: 4 Additional comments: left hip healing - Psychiatric Exam Psychiatric exam: Normal Affect, Normal Mood - Skin Skin Exam: Dry, Normal Color Assessment and Plan (1) Acute blood loss anemia Status: Acute (2) Degenerative joint disease of left hip Status: Acute (3) Status post THR (total hip replacement) Assessment & Plan: plan for physical and occupational therapy Discussed goals with patinet and . Instructed therapists to teach exercises to patient which she can do when alone in the room besides the regular therapy program Status: Acute (4) Diabetes mellitus Status: Chronic (5) Primary osteoarthritis of left hip Status: Chronic
[2017-06-15] MEDS: Insulin Regular 100 units/ml SC SCH ×4 (06:54→21:27)
[2017-06-15] MEDS: Oxycodone/Acetaminophen 5/325 mg Tab PO PRN ×3 (09:24→21:50)
--- NOTE | 2017-06-15 10:42 | CP.PCM.PN ---
Subjective - Date & Time of Evaluation Date of Evaluation: 06/15/17 Time of Evaluation: 10:35 - Subjective Subjective: S- pt comfortable/ OOB and ambulating with wlaker Objective - Vital Signs/Intake and Output Vital Signs (last 24 hours): Temp Pulse Resp BP Pulse Ox 98.6 F 83 20 116/55 L 98 06/15/17 09:21 06/15/17 09:21 06/15/17 09:21 06/15/17 09:21 06/15/17 09:21 - Medications Medications: Current Medications Aspirin (Ecotrin) 81 mg PO Q12 [facility] Last Admin: 06/15/17 09:26 Dose: 81 mg Atorvastatin Calcium (Lipitor) 20 mg PO HS [facility] Last Admin: 06/14/17 21:08 Dose: 20 mg Cholecalciferol (Vitamin D) 2,000 iu PO DAILY [facility] Last Admin: 06/15/17 09:26 Dose: 2,000 iu Docusate Sodium (Colace) 100 mg PO BID [facility] Last Admin: 06/15/17 09:26 Dose: 100 mg Duloxetine HCl (Cymbalta) 60 mg PO DAILY [facility] Last Admin: 06/15/17 09:25 Dose: 60 mg Fenofibrate (Tricor) 145 mg PO HS [facility] Last Admin: 06/14/17 21:08 Dose: 145 mg Ferrous Sulfate (Feosol) 325 mg PO BID [facility] Last Admin: 06/15/17 09:25 Dose: 325 mg Insulin Human Regular (Humulin R) 0 units SC [facility] PRN Reason: Protocol Last Admin: 06/15/17 06:54 Dose: 2 unit Lactulose (Enulose) 20 gm PO DAILY PRN PRN Reason: Constipation Last Admin: 06/12/17 16:42 Dose: 20 gm Metformin HCl (Glucophage) 850 mg PO BID [facility] Last Admin: 06/15/17 09:26 Dose: 850 mg Ondansetron HCl (Zofran Inj) 4 mg IVP Q6 PRN PRN Reason: Nausea/Vomiting Oxycodone/Acetaminophen (Percocet 5/325 Mg Tab) 1 tab PO Q4 PRN PRN Reason: Pain, moderate (4-7) Stop: 06/15/17 14:50 Last Admin: 06/15/17 09:24 Dose: 1 tab Paroxetine HCl (Paxil) 20 mg PO DAILY [facility] Last Admin: 06/15/17 09:28 Dose: 20 mg Pioglitazone HCl (Actos) 15 mg PO BID [facility] Last Admin: 06/15/17 09:27 Dose: 15 mg Sitagliptin Phosphate (Januvia) 100 mg PO DAILY [facility] Last Admin: 06/15/17 09:26 Dose: 100 mg - Skin Additional comments: Obj systemic wnl Musculoskeltal OOB and ambulating s dressing dry and intact orthopedically satble stance - erect pt ambulating with walker N/V intact Assessment and Plan - Assessment and Plan (Free Text) Assessment: A- s/p THR P increase weight bearing to full weigth bearing with walker
[2017-06-16] MEDS: Insulin Regular 100 units/ml SC SCH ×4 (06:45→21:31)
--- NOTE | 2017-06-16 12:16 | CP.PCM.PN ---
Subjective - Date & Time of Evaluation Date of Evaluation: 06/15/17 Time of Evaluation: 09:30 - Subjective Subjective: no acute complaints at present Objective - Vital Signs/Intake and Output Vital Signs (last 24 hours): Temp Pulse Resp BP Pulse Ox 98.1 F 79 20 145/64 98 06/16/17 08:37 06/16/17 08:37 06/16/17 08:37 06/16/17 08:37 06/16/17 08:37 - Medications Medications: Current Medications Aspirin (Ecotrin) 81 mg PO Q12 [facility] Last Admin: 06/16/17 08:51 Dose: 81 mg Atorvastatin Calcium (Lipitor) 20 mg PO HS [facility] Last Admin: 06/15/17 21:27 Dose: 20 mg Cholecalciferol (Vitamin D) 2,000 iu PO DAILY [facility] Last Admin: 06/16/17 08:52 Dose: 2,000 iu Docusate Sodium (Colace) 100 mg PO BID [facility] Last Admin: 06/16/17 08:50 Dose: 100 mg Duloxetine HCl (Cymbalta) 60 mg PO DAILY [facility] Last Admin: 06/16/17 08:51 Dose: 60 mg Fenofibrate (Tricor) 145 mg PO HS [facility] Last Admin: 06/15/17 21:27 Dose: 145 mg Ferrous Sulfate (Feosol) 325 mg PO BID [facility] Last Admin: 06/16/17 08:51 Dose: 325 mg Insulin Human Regular (Humulin R) 0 units SC [facility] PRN Reason: Protocol Last Admin: 06/16/17 11:32 Dose: 4 unit Lactulose (Enulose) 20 gm PO DAILY PRN PRN Reason: Constipation Last Admin: 06/12/17 16:42 Dose: 20 gm Metformin HCl (Glucophage) 850 mg PO BID [facility] Last Admin: 06/16/17 08:52 Dose: 850 mg Ondansetron HCl (Zofran Inj) 4 mg IVP Q6 PRN PRN Reason: Nausea/Vomiting Oxycodone/Acetaminophen (Percocet 5/325 Mg Tab) 1 tab PO Q4 PRN PRN Reason: Pain, moderate (4-7) Stop: 06/18/17 16:33 Last Admin: 06/15/17 21:50 Dose: 1 tab Paroxetine HCl (Paxil) 20 mg PO DAILY [facility] Last Admin: 06/16/17 08:52 Dose: 20 mg Pioglitazone HCl (Actos) 15 mg PO BID [facility] Last Admin: 06/16/17 08:51 Dose: 15 mg Sitagliptin Phosphate (Januvia) 100 mg PO DAILY [facility] Last Admin: 06/16/17 08:52 Dose: 100 mg - Head Exam Head Exam: ATRAUMATIC, NORMAL INSPECTION, NORMOCEPHALIC - Eye Exam Eye Exam: EOMI, Normal appearance Pupil Exam: NORMAL ACCOMODATION, PERRL - ENT Exam ENT Exam: Mucous Membranes Moist, Normal Exam - Neck Exam Neck Exam: Normal Inspection - Respiratory Exam Respiratory Exam: Clear to Ausculation Bilateral, NORMAL BREATHING PATTERN - Cardiovascular Exam Cardiovascular Exam: REGULAR RHYTHM - GI/Abdominal Exam GI & Abdominal Exam: Normal Bowel Sounds - Rectal Exam Rectal Exam: NORMAL INSPECTION - Exam External exam: NORMAL EXTERNAL EXAM - Extremities Exam Extremities Exam: Normal Capillary Refill, Normal Inspection Additional comments: left leg weakness secondary to hip surgery - Back Exam Back Exam: NORMAL INSPECTION - Neurological Exam Neurological Exam: Alert, Awake Neuro motor strength exam: Left Upper Extremity: 4, Right Upper Extremity: 4, Left Lower Extremity: 3, Right Lower Extremity: 4 - Psychiatric Exam Psychiatric exam: Normal Affect, Normal Mood - Skin Skin Exam: Dry, Normal Color Assessment and Plan (1) Acute blood loss anemia Status: Acute (2) Degenerative joint disease of left hip Status: Acute (3) Status post THR (total hip replacement) Assessment & Plan: plan to continue with pain management, rom, strengthening transfers and gait training. Moniotor the hip incisional site Status: Acute (4) Diabetes mellitus Status: Chronic (5) Primary osteoarthritis of left hip Status: Chronic
[2017-06-16] MEDS: Oxycodone/Acetaminophen 5/325 mg Tab PO PRN (21:27)
[2017-06-17] MEDS: Insulin Regular 100 units/ml SC SCH ×2 (06:30→11:48)
[2017-06-17 08:49] VITALS: BP 144/64; PULSE 70; TEMP 98.8; O2SAT 98
--- NOTE | 2017-06-17 08:57 | CP.PCM.PN ---
Subjective - Date & Time of Evaluation Date of Evaluation: 06/17/17 Time of Evaluation: 08:55 - Subjective Subjective: Patient states pain is improving. Anxious to go home, says her back is hurting from the hospital bed. No other new complaints. Denies CP/SOB/dizziness. Objective - Vital Signs/Intake and Output Vital Signs (last 24 hours): Temp Pulse Resp BP Pulse Ox 98.8 F 70 20 144/64 98 06/17/17 08:45 06/17/17 08:45 06/17/17 08:45 06/17/17 08:45 06/17/17 08:45 - Medications Medications: Current Medications Aspirin (Ecotrin) 81 mg PO Q12 [facility] Last Admin: 06/17/17 08:10 Dose: 81 mg Atorvastatin Calcium (Lipitor) 20 mg PO HS [facility] Last Admin: 06/16/17 21:25 Dose: 20 mg Cholecalciferol (Vitamin D) 2,000 iu PO DAILY [facility] Last Admin: 06/17/17 08:10 Dose: 2,000 iu Docusate Sodium (Colace) 100 mg PO BID [facility] Last Admin: 06/17/17 08:09 Dose: Not Given Duloxetine HCl (Cymbalta) 60 mg PO DAILY [facility] Last Admin: 06/17/17 08:10 Dose: 60 mg Fenofibrate (Tricor) 145 mg PO HS [facility] Last Admin: 06/16/17 21:25 Dose: 145 mg Ferrous Sulfate (Feosol) 325 mg PO BID [facility] Last Admin: 06/17/17 08:09 Dose: 325 mg Insulin Human Regular (Humulin R) 0 units SC [facility] PRN Reason: Protocol Last Admin: 06/17/17 06:30 Dose: 1 unit Lactulose (Enulose) 20 gm PO DAILY PRN PRN Reason: Constipation Last Admin: 06/12/17 16:42 Dose: 20 gm Metformin HCl (Glucophage) 850 mg PO BID [facility] Last Admin: 06/17/17 08:10 Dose: 850 mg Ondansetron HCl (Zofran Inj) 4 mg IVP Q6 PRN PRN Reason: Nausea/Vomiting Oxycodone/Acetaminophen (Percocet 5/325 Mg Tab) 1 tab PO Q4 PRN PRN Reason: Pain, moderate (4-7) Stop: 06/18/17 16:33 Last Admin: 06/16/17 21:27 Dose: 1 tab Paroxetine HCl (Paxil) 20 mg PO DAILY [facility] Last Admin: 06/17/17 08:09 Dose: 20 mg Pioglitazone HCl (Actos) 15 mg PO BID [facility] Last Admin: 06/17/17 08:09 Dose: 15 mg Sitagliptin Phosphate (Januvia) 100 mg PO DAILY [facility] Last Admin: 06/17/17 08:10 Dose: 100 mg - Extremities Exam Additional comments: Left hip: dressing changed. Incision intact, dry, no erythema, swelling to thigh improving. Sensation intact, +DP/PT pulses, calves soft NT neg homans. Right iliac crest dressing changed, incisions CDI, sterile dressing applied. + ROM ankle/toes Assessment and Plan (1) Degenerative joint disease of left hip Assessment & Plan: POD#7 s/p left anterior THR -for d/c home -f/u Dr. Bledsoe 7-10 days call for appointment -continue WBAT with walker -cont PT -keep incisions dry/covered until myriam/sutures removed -d/w Dr. Bledsoe, agrees with above Status: Acute
--- NOTE | 2017-06-17 16:33 | CP.PCM.DIS ---
Provider - Provider Date of Admission: 06/12/17 14:28 Attending physician: Uriel Mcgrath MD Primary care physician: Ji Bledsoe III, MD Consults: Ortho consult physiatry consult Time Spent in preparation of Discharge (in minutes): 15 Hospital Course - Lab Results Lab Results: Most Recent Lab Values POC Glucose (mg/dL) 201 mg/dL (65-110) H 06/17/17 11:11 - Hospital Course Hospital Course: 66F PMH OA, MIXED HLD, NIDDM with polyneuropathy, mixed HYPERLIPIDEMIA, Nontoxic multinodular goiter, presented with over 6 months of constant, sharp, moderate to severe hip pain, worsening on ambulation, failing outpatient conservative therapy. She is s/p L total hip replacement with Dr. Duval . Post op transferred to TCU for physical therapy and participated well. Today to be discharged home with follow up with ortho in 1 week and pain medication. 1.Primary Osteoarthritis of L hip: s/p left THR pain is controlle participated well with PT Ortho on consult cleared patient for discharge Continue pain management witH Percoset PRN DVt prophylaxis with ASA 81 mg PO BID 2.NIDDM type II controlled continue home meds Accuchecks, insulin coverage diabetic diet 3.Acute blood loss anemia Hgb dropped to 10 continue to monitor Venofer and vitam b12 given continue Ferrous PO 4.Mixed Hyperlipidemia simvastatin 40 mg fenofibrate 134 mg 5.Anxiety/Depression cymbalta 60 mg paroxetine 20 mg 6.VTE ppx ASa 81 mg po BID Discharge Exam - Head Exam Head Exam: ATRAUMATIC, NORMAL INSPECTION, NORMOCEPHALIC - Eye Exam Eye Exam: EOMI, Normal appearance, PERRL Pupil Exam: NORMAL ACCOMODATION - ENT Exam ENT Exam: Mucous Membranes Moist, Normal Exam - Neck Exam Neck exam: Full Rom, Normal Inspection - Respiratory Exam Respiratory Exam: Clear to PA & Lateral, NORMAL BREATHING PATTERN. absent: Rales, Rhonchi, Wheezes - Cardiovascular Exam Cardiovascular Exam: REGULAR RHYTHM, RRR, +S1, +S2. absent: JVD - GI/Abdominal Exam GI & Abdominal Exam: Normal Bowel Sounds, Soft. absent: Distended, Guarding, Rebound, Tenderness - Rectal Exam Rectal Exam: Deferred - Extremities Exam Extremities exam: normal capillary refill, pedal pulses present Additional comments: left hip surgical incision clear - Back Exam Back exam: NORMAL INSPECTION - Neurological Exam Neurological exam: Alert, CN II-XII Intact, Oriented x3, Reflexes Normal - Psychiatric Exam Psychiatric exam: Normal Affect, Normal Mood - Skin Skin Exam: Dry, Pallor, Warm Discharge Plan - Discharge Medications Prescriptions: Aspirin 81 mg PO BID #60 tab.chew Ferrous Sulfate [Feosol] 325 mg PO BID #60 tab - Follow Up Plan Condition: GOOD Disposition: HOME/ ROUTINE Patient education suggested?: Yes Instructions: Precautions after Total Joint Replacement Surgery (DC), Fall Prevention (DC), Total Hip Replacement (DC) Referrals: Ji Bledsoe III, MD [Primary Care Provider] -
== END 2017-06-17 13:42 | disposition home health service (06) | DRG 560 ==
LOC: H.TCU 14:28
PROC: F07Z9FZ Gait Training/Functional Ambulation Treatment using Assistive, Adaptive, Supportive or Protective Equipment (ICD-10-PCS; principal; 2017-06-12)
PROC: F08Z4FZ Home Management Treatment using Assistive, Adaptive, Supportive or Protective Equipment (ICD-10-PCS; 2017-06-12)
PROC: F07L6FZ Therapeutic Exercise Treatment of Musculoskeletal System - Lower Back / Lower Extremity using Assistive, Adaptive, Supportive or Protective Equipment (ICD-10-PCS; 2017-06-13)
DX: Z47.1 Aftercare following joint replacement surgery (principal); D62 Acute posthemorrhagic anemia; E11.42 Type 2 diabetes mellitus with diabetic polyneuropathy; Z96.642 Presence of left artificial hip joint; M16.12 Unilateral primary osteoarthritis, left hip; E78.2 Mixed hyperlipidemia; F32.9 Major depressive disorder, single episode, unspecified; F41.9 Anxiety disorder, unspecified; Z96.651 Presence of right artificial knee joint; E04.2 Nontoxic multinodular goiter; Z87.891 Personal history of nicotine dependence; Z79.82 Long term (current) use of aspirin

== ENCOUNTER 2018-06-23 06:25 | Inpatient (IN) | payer MEDICARE, OTHER ==
[2018-06-18 11:44] VITALS: BMI 24.2
--- NOTE | 2018-06-23 07:02 | CP.PCM.CON ---
History of Present Illness - History of Present Illness History of Present Illness: Orthopedic consultation Dr. Bledsoe 67F with left knee DJD failed conservative mgmt and elected for TKR. PMH: DM, neuropathy, breast Ca PSH: R knee partial replacement, appendectomy, hysterectomy, L THR NKDA No history bleeding/clotting disorder, seizure, CVA, CAD, stents Review of Systems - Review of Systems All systems: reviewed and no additional remarkable complaints except - Musculoskeletal Musculoskeletal: As Per HPI Past Patient History - Past Medical History & Family History Past Medical History?: Yes Past Family History: Reviewed and not pertinent - Past Social History Smoking Status: Heavy Smoker > 10 Cigarettes Daily - CARDIAC Hx Cardiac Disorders: No - PULMONARY Hx Respiratory Disorders: No - NEUROLOGICAL Hx Neurological Disorder: No - HEENT Hx HEENT Problems: Yes Hx Cataracts: Yes - RENAL Hx Chronic Kidney Disease: No - ENDOCRINE/METABOLIC Hx Endocrine Disorders: No - HEMATOLOGICAL/ONCOLOGICAL Hx Blood Disorders: No - INTEGUMENTARY Hx Dermatological Problems: No - MUSCULOSKELETAL/RHEUMATOLOGICAL Hx Musculoskeletal Disorders: Yes Hx Arthritis: Yes (joints,hands,feet) - GASTROINTESTINAL Hx Gastrointestinal Disorders: No - GENITOURINARY/GYNECOLOGICAL Hx Genitourinary Disorders: No - PSYCHIATRIC Hx Psychophysiologic Disorder: No - SURGICAL HISTORY Hx Surgeries: Yes Hx Appendectomy: Yes Hx Breast Biopsy: Yes (left--cancer 1999) Hx Hysterectomy: Yes (partial right knee, L THR) Hx Orthopedic Surgery: Yes (left total hip,left knee partial replacement) Other/Comment: bilateral breast reduction,cancer bilateral leg - ANESTHESIA Hx Anesthesia: Yes Hx Anesthesia Reactions: No Has any member of the family had a problem w/ anesthesia?: No Meds Allergies/Adverse Reactions: Allergies Allergy/AdvReac Type Severity Reaction Status Date / Time No Known Allergies Allergy Verified 06/12/17 14:24 Physical Exam - Constitutional Appears: Well, No Acute Distress - Extremities Exam Additional comments: +ROM ankle/toes, sensation intact, calves soft NT neg homans - Neurological Exam Neurological exam: Alert, Oriented x3 - Psychiatric Exam Psychiatric exam: Normal Affect, Normal Mood - Skin Skin Exam: Dry, Intact, Normal Color, Warm Assessment & Plan (1) Primary osteoarthritis of left knee Assessment and Plan: NPO for OR T&S risks/benefits/alt of TKR explained to patient by Dr. Bledsoe who verbalized understanding and consented to procedure d/w Dr. Bledsoe, agrees with above Status: Acute (2) Diabetes mellitus Status: Chronic
[2018-06-23 07:04] LABS: BASO % 0.6 % (0.0-2.0); EOS # 0.2 K/uL (0.0-0.7); EOS % 2.5 % (0.0-4.0); HEMOGLOBIN 14.2 g/dL (12.0-16.0); LYMPH # 2.7 K/uL (1.0-4.3); LYMPH % 38.7 % (20.0-40.0); MEAN CELL VOLUME 97.1 fl (81.0-99.0); MEAN PLATELET VOLUME 8.4 fl (7.2-11.7); MONO # 0.6 K/uL (0.0-0.8); MONO % 9.1 % (0.0-10.0); NEUT # 3.4 K/uL (1.8-7.0); NEUT % 49.1 % (50.0-75.0); RBC 4.31 Mil/uL (3.80-5.20); RED CELL DISTRIBUTION WIDTH 13.6 % (11.5-14.5); WHITE BLOOD COUNT 6.9 K/uL (4.8-10.8)
[2018-06-23] MEDS ORDERED: Tranexamic Acid 1,000 MG in Sodium Chloride 0.9% 100 ML IVPB ONE (07:08)
[2018-06-23] MEDS ORDERED: Lactated Ringer's 1,000 ML IV ONE (07:15)
[2018-06-23] MEDS ORDERED: Propofol 10 mg/ml Inj (20 ML) ONE (07:15)
[2018-06-23] MEDS ORDERED: Midazolam 2 MG/2 ML VIAL ONE ×2 (07:15→09:15)
[2018-06-23] MEDS ORDERED: Lidocaine 2% Jelly (5 ml) TOP ONE (07:16)
[2018-06-23] MEDS ORDERED: Phenylephrine 10 mg/ml Inj ONE (07:23)
[2018-06-23] MEDS ORDERED: Ropivacaine 0.5% 30ML IV ONE (07:23)
[2018-06-23] MEDS ORDERED: Rocuronium 10 mg/ml (5 ml) ONE (07:25)
[2018-06-23] MEDS ORDERED: Succinylcholine 200 mg/10 ml Inj IV ONE (07:25)
--- NOTE | 2018-06-23 07:34 | CP.PCM.HP ---
History of Present Illness - History of Present Illness History of Present Illness: PMD: Malgorzata Good MD Chief Complaint: Left Knee pain The patent was seen and examined in the SDS Unit HPI: This is a 67 years old female with hx of DM II with Polyneuropathy, HTN and painful osteoarthritis of the left knee made worse with ambulation. This Osteoarthritis of the left knee has failed conservative therapy of Physical Therapy, intra-articular steroid and analgesics. She is here for a lleft Total knee replacement. PMH: DM II; HTN; Left knee osteoarthritis; Left breast cancer; cataract PSH: Partial right knee replacement; Left hip replacement; Hysterectomy; Appendectomy; Breast reduction SH: Smoded Cigarettes ; No alcohol no illegal drug use; Live with family FH: Significant for Diabetes Allergies: NKDA Medication: Cymbalta 60 mg Paroxetine 20 mg Simvastatin 40 mg Fenofibrate 134 mg pioglitazone 15 Metformin 850 mg BID Januvia 50 mg Present on Admission - Present on Admission Any Indicators Present on Admission: No History of DVT/PE: No History of Uncontrolled Diabetes: No Urinary Catheter: No Decubitus Ulcer Present: No Review of Systems - Constitutional Constitutional: absent: Chills, Fatigue, Fever, Headache - EENT Eyes: Requires Corrective Lenses. absent: Blurred Vision, Diplopia, Floaters Ears: absent: Decreased Hearing, Tinnitus Nose/Mouth/Throat: absent: Epistaxis, Nasal Congestion, Sinus Pain, Sinus Pressure - Cardiovascular Cardiovascular: absent: Chest Pain, Dyspnea, Edema - Respiratory Respiratory: absent: Cough, Dyspnea, Wheezing, Stridor - Gastrointestinal Gastrointestinal: absent: Abdominal Pain, Constipation, Diarrhea, Nausea, Vomiting - Genitourinary Genitourinary: absent: Dysuria, Flank Pain, Urinary Frequency - Musculoskeletal Musculoskeletal: Arthralgias. absent: Muscle Cramps, Neck Pain - Integumentary Integumentary: absent: Pruritus, Rash, Skin Ulcer, Sores, Striae - Neurological Neurological: absent: Confusion, Dizziness, Weakness - Psychiatric Psychiatric: Depression - Endocrine Endocrine: absent: Fatigue, Palpitations - Hematologic/Lymphatic Hematologic: absent: Easy Bleeding, Easy Bruising Past Patient History - Past Medical History & Family History Past Medical History?: Yes Past Family History: Reviewed and not pertinent - Past Social History Smoking Status: Heavy Smoker > 10 Cigarettes Daily Chewing Tobacco Use: No Cigar Use: No Alcohol: None Drugs: Denies Home Situation {Lives}: With Family - CARDIAC Hx Hypercholesterolemia: Yes Hx Hypertension: Yes - PULMONARY Hx Respiratory Disorders: No - NEUROLOGICAL Hx Neurological Disorder: No - HEENT Hx HEENT Problems: Yes Hx Cataracts: Yes - RENAL Hx Chronic Kidney Disease: No - ENDOCRINE/METABOLIC Hx Diabetes Mellitus Type 2: Yes - HEMATOLOGICAL/ONCOLOGICAL Hx Blood Disorders: No - INTEGUMENTARY Hx Dermatological Problems: No - MUSCULOSKELETAL/RHEUMATOLOGICAL Hx Musculoskeletal Disorders: Yes Hx Arthritis: Yes (joints,hands,feet) Hx Osteoarthritis: Yes (left knee) - GASTROINTESTINAL Hx Gastrointestinal Disorders: No - GENITOURINARY/GYNECOLOGICAL Hx Genitourinary Disorders: No - PSYCHIATRIC Hx Psychophysiologic Disorder: No - SURGICAL HISTORY Hx Surgeries: Yes Hx Appendectomy: Yes Hx Breast Biopsy: Yes (left--cancer 1999) Hx Hysterectomy: Yes (partial right knee, L THR) Hx Orthopedic Surgery: Yes (left total hip,left knee partial replacement) Other/Comment: bilateral breast reduction,cancer bilateral leg - ANESTHESIA Hx Anesthesia: Yes Hx Anesthesia Reactions: No Has any member of the family had a problem w/ anesthesia?: No Meds Allergies/Adverse Reactions: Allergies Allergy/AdvReac Type Severity Reaction Status Date / Time No Known Allergies Allergy Verified 06/23/18 07:37 Physical Exam - Constitutional Appears: No Acute Distress - Head Exam Head Exam: ATRAUMATIC, NORMAL INSPECTION, NORMOCEPHALIC - Eye Exam Eye Exam: EOMI, Normal appearance Pupil Exam: NORMAL ACCOMODATION, PERRL - ENT Exam ENT Exam: Mucous Membranes Moist, Normal Exam, Normal External Ear Exam, Normal Oropharynx - Neck Exam Neck exam: Positive for: Full Rom, Normal Inspection. Negative for: Lymphadenopathy, Tenderness - Respiratory Exam Respiratory Exam: Clear to Auscultation Bilateral. absent: Rales, Rhonchi, Wheezes - Cardiovascular Exam Cardiovascular Exam: REGULAR RHYTHM, +S1, +S2 - GI/Abdominal Exam GI & Abdominal Exam: Mass, Normal Bowel Sounds, Soft. absent: Organomegaly, Tenderness - Rectal Exam Rectal Exam: Deferred - Extremities Exam Extremities exam: Positive for: full ROM, normal inspection. Negative for: calf tenderness Additional comments: left knee swollen from osteoafthritis, pain on ambulation - Back Exam Back exam: NORMAL INSPECTION. absent: CVA tenderness (L), CVA tenderness (R) - Neurological Exam Neurological exam: Alert, CN II-XII Intact, Oriented x3, Reflexes Normal - Psychiatric Exam Psychiatric exam: Normal Affect, Normal Mood - Skin Skin Exam: Dry, Intact, Normal Color Results - Labs Result Diagrams: 06/23/18 06:45 06/23/18 07:05 Labs: Laboratory Results - last 24 hr 06/23/18 06:45 WBC 6.9 RBC 4.31 Hgb 14.2 D Hct 41.9 MCV 97.1 MCH 33.0 H MCHC 34.0 RDW 13.6 Plt Count 296 D MPV 8.4 Neut % (Auto) 49.1 L Lymph % (Auto) 38.7 [place] % (Auto) 9.1 Eos % (Auto) 2.5 Baso % (Auto) 0.6 Neut # (Auto) 3.4 Lymph # (Auto) 2.7 [place] # (Auto) 0.6 Eos # (Auto) 0.2 Baso # (Auto) 0.0 Assessment & Plan - Assessment and Plan (Free Text) Plan: 67 years old female with hx of DM II with Polyneuropathy, HTN and painful osteoarthritis of the left knee made worse with ambulation. This Osteoarthritis of the left knee has failed conservative therapy of Physical Therapy, intra- articular steroid and analgesics. She is here for a lleft Total knee replacement. #. osteoarthritis of the left knee - Consult Orthopedic Dr Bledsoe - Orthopedic management - pain management - PT/OT #. DM II - Restart Medications for Diabetes post surgery when patient begins to eat - Lispro Insulin sliding scale according to Accucheck #. HLD - Restart Fenofibrate when patient begins to eat #. DVT prophylaxis : lovenox as of 06/24/18 #. Code Status: Full The Patient was cleared for surgery by Dr Solano/ The patient is low to moderate cardiac risk for the surgeru. She is medically cleared at this time Mike Ruiz MD - Date & Time Date: 06/23/18 Time: 07:33
[2018-06-23] MEDS ORDERED: Bacitracin Ointment 30 GM TUBE ONE (07:41)
[2018-06-23 07:49] LABS: BLOOD UREA NITROGEN 33 mg/dl (7-17); CALCIUM 10.4 mg/dL (8.4-10.2); GFR NON-AFRICAN AMERICAN > 60
[2018-06-23] MEDS ORDERED: ePHEDrine 50 mg/ml Inj ONE (08:46)
[2018-06-23] MEDS ORDERED: Sodium Chloride 0.9% 1,000 ML IV SCH (09:00)
[2018-06-23] MEDS ORDERED: Neostigmine 1:1000 (1 mg/ml) Inj ONE (11:16)
--- NOTE | 2018-06-23 12:04 | PCM.ANESB3 ---
Femoral Nerve Block - Femoral Nerve Block Date of Procedure: 06/23/18 Anesthesiologist: Ventura Pre-Procedure Diagnosis: Left total knee replacement Post-Procedure Diagnosis: Same Procedure Performed: Femoral Nerve Block Left - Procedure Femoral Nerve Block: The procedure was explained to the patient that it is for the post-operative pain management. Consent was obtained after a thorough discussion with the patient regarding the benefits and possible complications of local anesthetic block of the femoral nerve at the inguinal crease area. The patient was brought to the operating room and standard monitors were applied. Time-out was held with the circulating nurse to confirm the correct surgery and the appropriate block. After applying oxygen by nasal cannula and administering IV Sedation, patient was placed in supine position with fully extended lower extremities and the ___left groin exposed. The femoral artery was then carefully palpated. The ultrasound transducer was then applied to this area in the transverse plane and the femoral nerve was visualized lateral to the femoral artery and underneath the fascia iliaca. After thorough identification, the inguinal crease area was prepped with Betadine solution three times and 1 % Lidocaine was injected subcutaneously for topical anesthesia. At this point, a #22 gauge Stimuplex 2-inch needle was inserted immediately lateral to the femoral artery pulse at the inguinal crease and advanced perpendicularly. The needle was inserted to the ultrasound transducer in-plane towards the femoral nerve in a [id number] direction. Needle advancement was performed carefully under direct ultrasound visualization. Nerve stimulator was used and twitch of the quadriceps muscle was obtained at current of __0.2___MA. After negative aspiration, __20___cc of __.5___% ___bupivacaine was injected. Under ultrasound guidance the local anesthetics were observed spreading below fascia iliaca and around the femoral nerve. The needle was removed intact and sterile dressing was applied. The patient had stable vital signs, was conscious and in no apparent distress. The patient tolerated the femoral nerve block well with stable vital signs and was prepared for subsequent surgery.
[2018-06-23] MEDS ORDERED: HYDROmorphone 0.5 mg/0.5 ml ISec IVP PRN (12:05)
--- NOTE | 2018-06-23 12:05 | PCM.ANESB2 ---
Popliteal Nerve Block - Popliteal Nerve Block Date of Procedure: 06/23/18 Anesthesiologist: Ventura Pre-Procedure Diagnosis: Left total knee replacement Post-Procedure Diagnosis: Same Procedure Performed: Popliteal Nerve Block Left - Procedure Popliteal Nerve Block: This procedure was explained to the patient that it is for post-operative pain management. Consent was obtained after a thorough discussion with the patient regarding the benefits and possible complications of local anesthetic block of the sciatic nerve at the popliteal level. The patient was brought to the operating room and standard monitors are applied. Time-out was held with the circulating nurse to confirm the correct surgery and the appropriate block. After applying oxygen by nasal cannula and administering IV Sedation, patient's operative leg was gently raised and supported and the groove in between the biceps femoris and vastus lateralis muscles was carefully palpated. The skin approximately 8cm above the popliteal crease was then marked. The ultrasound transducer was then applied to the posterior thigh approximately 8cm above the popliteal crease in the transverse plane and the sciatic nerve before its division was visualized lateral to the popliteal artery and in between the bicep femoris and semimembranosus/semitendinosus muscles. After identification, the lateral portion of the thigh was prepped with Betadine solution three times and Lidocaine 1% was injected subcutaneously for topical anesthesia. At this point, a # 21 gauge Stimuplex insulated 4 inch needle was inserted into pre-marked area and advanced in a perpendicular direction. The needle was inserted above the ultrasound transducer in-plane towards the sciatic nerve in a [id number] direction. Needle advancement was performed carefully under direct ultrasound visualization. Nerve stimulator was used and dorsiflexion of the ___left__ foot was elicited at a current of __0.2___ MA. After repeated negative aspiration, __20___cc of __.5___ % ____bupivacaine was injected . The needle was removed intact and sterile dressing was applied. The patient tolerated the popliteal nerve block well with stable vital signs and was subsequently prepared for the surgery.
--- NOTE | 2018-06-23 15:38 | PCM.SURG1 ---
Surgeon's Initial Post Op Note - Surgeon's Notes Surgeon: Ladi [employer] Technician: Suraj Pineda PA-C/ MARIAM Choi Type of Anesthesia: General Endo, Spinal Anesthesia Administered By: DR Whitehead Pre-Operative Diagnosis: Primary tricompartmental O/A L Knee Operative Findings: Primary tricompartmental O/A L knee. 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 laTERAL PATELLA RETINACULAR CONTRACTURE Post-Operative Diagnosis: ABOVE Operation Performed: L TKR. posterior capsular release. lateral patella release. anterior and posterior synovectomy. computer navigation Specimen/Specimens Removed: synovium/bone/cartilage Estimated Blood Loss: EBL {In ML}: 100 Blood Products Given: N/A Drains Used: Hemovac Post-Op Condition: Good Date of Surgery/Procedure: 06/23/18 Time of Surgery/Procedure: 09:55 (time in room/anaesthesioa indcution time 835)
--- NOTE | 2018-06-23 15:42 | RAD ---
Date of service: 06/23/2018 PROCEDURE: Left knee HISTORY: pt in PACU s/p TKR COMPARISON: None TECHNIQUE: Standard protocol for this study/examination. FINDINGS: Satisfactory position/alignment of distal femoral and tibial plateau components of left TKA. IMPRESSION: Satisfactory postoperative status.
--- NOTE | 2018-06-23 17:20 | CP.PCM.PCO ---
Assessment/Plan - Assessment and Plan (Free Text) Assessment: S: 67 YO Female with PMHx of DM II with Polyneuropathy, HTN and painful osteoarthritis is admitted for Osteoarthritis of the left Knee. S/p L TKR POD0 Pt is seen and examined by bedside this evening post op. Awake, alert and seen eating her dinner. Tolerating PO intake, pain is well controlled per patient. O: VS remains stable, afebrile GEN: NAD HEENT: EOMI C: S1S2 no murmurs R: clear breath sounds b/l Neuro: AAO x 3 Ext: LLR in dressing. Cap refill <2sec, warm and normal color. Lower ext still a bit numb per pt but sensory intact. A/P: S/p L TKR -ortho on board -cont pain management -PT on consult -lovenox SC -Abx as per ortho
[2018-06-23] MEDS: ceFAZolin IV 2 gm in Dextrose 2 GM/50 ML BAG IVPB SCH (17:53)
[2018-06-24] MEDS: ceFAZolin IV 2 gm in Dextrose 2 GM/50 ML BAG IVPB SCH (00:11)
[2018-06-24] MEDS: oxyCODONE 5 mg Immediate Release Tab PO PRN ×2 (00:14→04:39)
[2018-06-24 06:51] LABS: HEMOGLOBIN 11.7 g/dL (12.0-16.0); MEAN CELL VOLUME 97.3 fl (81.0-99.0); MEAN CORPUSCULAR HEMOGLOBIN 32.8 pg (27.0-31.0); MEAN CORPUSCULAR HGB CONC 33.7 g/dL (33.0-37.0); RBC 3.56 Mil/uL (3.80-5.20); RED CELL DISTRIBUTION WIDTH 13.8 % (11.5-14.5); WHITE BLOOD COUNT 8.1 K/uL (4.8-10.8)
[2018-06-24 07:10] LABS: BLOOD UREA NITROGEN 19 mg/dl (7-17); CALCIUM 9.1 mg/dL (8.4-10.2); GFR NON-AFRICAN AMERICAN > 60
--- NOTE | 2018-06-24 08:12 | CP.PCM.PN ---
Subjective - Date & Time of Evaluation Date of Evaluation: 06/24/18 Time of Evaluation: 07:30 - Subjective Subjective: Patient seen and examined at bedside. Pain is not controlled with current pain regiment. No acute events overnight. Denies CP/SOB/fever/[place]. Objective - Vital Signs/Intake and Output Vital Signs (last 24 hours): Temp Pulse Resp BP Pulse Ox 98.2 F 81 19 127/64 96 06/24/18 03:00 06/24/18 03:00 06/24/18 03:00 06/24/18 03:00 06/24/18 03:00 - Medications Medications: Current Medications Acetaminophen (Tylenol 325mg Tab) 650 mg PO Q6 [facility] Last Admin: 06/24/18 04:02 Dose: Not Given Atorvastatin Calcium (Lipitor) 20 mg PO HS [facility] Last Admin: 06/23/18 21:59 Dose: 20 mg Cholecalciferol (Vitamin D) 2,000 intlu PO DAILY [facility] Docusate Sodium (Colace) 100 mg PO BID [facility] Last Admin: 06/23/18 17:55 Dose: 100 mg Duloxetine HCl (Cymbalta) 60 mg PO DAILY [facility] Enoxaparin Sodium (Lovenox) 40 mg SC DAILY [facility]; Protocol Fenofibrate (Tricor) 145 mg PO HS [facility] Last Admin: 06/23/18 21:59 Dose: 145 mg Hydromorphone HCl (Dilaudid) 0.5 mg IVP Q4 PRN PRN Reason: Pain, severe (8-10) Last Admin: 06/24/18 06:08 Dose: 0.5 mg Metformin HCl (Glucophage) 850 mg PO BIDWM [facility] Ondansetron HCl (Zofran Inj) 4 mg IVP Q6 PRN PRN Reason: Nausea/Vomiting Oxycodone HCl (Oxycodone Immediate Release Tab) 5 mg PO Q4H PRN PRN Reason: Pain, moderate (4-7) Last Admin: 06/24/18 04:39 Dose: 5 mg Paroxetine HCl (Paxil) 20 mg PO DAILY [facility] - Labs Labs: 06/24/18 05:30 06/24/18 05:30 - Extremities Exam Additional comments: L knee: knee imm in place Dressings CDI sensation intact SP/DP/TN motor intact EHL/FHL/TA/G pedal pulses intact comps soft NT b/l Assessment and Plan (1) Primary osteoarthritis of left knee Assessment & Plan: POD #1 s/p L TKA -Pain management consult ordered -PT/OT WBAT with RW -knee imm and CPM as per order -plan for discharge to home tomorrow AM once pain controlled with PO meds -above d/w Dr. Bledsoe in agreement Status: Acute
--- NOTE | 2018-06-24 08:27 | CP.PCM.PN ---
Subjective - Date & Time of Evaluation Date of Evaluation: 06/24/18 Time of Evaluation: 10:30 - Subjective Subjective: 67 yo female seen and examined at bedside. POD 1 left TKR. States that her anesthetic to her left leg is wearing off and she's feeling some discomfort in her leg. States she is having pain in her knee and requires more pain managment. States that she does not want to go to [facility]. States she was seen by PT already and they recommended further skilled therapy. Denies any other acute complaints and denies N/V/F/c/SOB/CP Objective - Vital Signs/Intake and Output Vital Signs (last 24 hours): Temp Pulse Resp BP Pulse Ox 98.2 F 81 19 127/64 96 06/24/18 03:00 06/24/18 03:00 06/24/18 03:00 06/24/18 03:00 06/24/18 03:00 - Medications Medications: Current Medications Acetaminophen (Tylenol 325mg Tab) 650 mg PO Q6 [facility] Last Admin: 06/24/18 04:02 Dose: Not Given Atorvastatin Calcium (Lipitor) 20 mg PO [facility] Last Admin: 06/23/18 21:59 Dose: 20 mg Cholecalciferol (Vitamin D) 2,000 intlu PO DAILY [facility] Docusate Sodium (Colace) 100 mg PO BID [facility] Last Admin: 06/23/18 17:55 Dose: 100 mg Duloxetine HCl (Cymbalta) 60 mg PO DAILY [facility] Enoxaparin Sodium (Lovenox) 40 mg SC DAILY [facility]; Protocol Fenofibrate (Tricor) 145 mg PO [facility] Last Admin: 06/23/18 21:59 Dose: 145 mg Hydromorphone HCl (Dilaudid) 0.5 mg IVP Q4 PRN PRN Reason: Pain, severe (8-10) Last Admin: 06/24/18 06:08 Dose: 0.5 mg Metformin HCl (Glucophage) 850 mg PO BIDWM [facility] Ondansetron HCl (Zofran Inj) 4 mg IVP Q6 PRN PRN Reason: Nausea/Vomiting Oxycodone HCl (Oxycodone Immediate Release Tab) 5 mg PO Q4H PRN PRN Reason: Pain, moderate (4-7) Last Admin: 06/24/18 04:39 Dose: 5 mg Paroxetine HCl (Paxil) 20 mg PO DAILY [facility] - Labs Labs: 06/24/18 05:30 06/24/18 05:30 - Constitutional Appears: Well, Non-toxic, No Acute Distress - Head Exam Head Exam: ATRAUMATIC, NORMOCEPHALIC - Eye Exam Eye Exam: EOMI, Normal appearance, PERRL - ENT Exam ENT Exam: Mucous Membranes Moist - Respiratory Exam Respiratory Exam: Clear to Ausculation Bilateral, NORMAL BREATHING PATTERN - Cardiovascular Exam Cardiovascular Exam: REGULAR RHYTHM, +S1, +S2 - GI/Abdominal Exam GI & Abdominal Exam: Soft, Normal Bowel Sounds - Extremities Exam Extremities Exam: Full ROM, Normal Capillary Refill. absent: Calf Tenderness - Neurological Exam Neurological Exam: Alert, Awake, Oriented x3 - Psychiatric Exam Psychiatric exam: Normal Affect, Normal Mood - Skin Skin Exam: Dry, Warm Assessment and Plan - Assessment and Plan (Free Text) Assessment: 67 yo female patient seen and evaluated POD 1 left TKR Plan: 1. osteoarthritis of the left knee - Consult Orthopedic Dr Bledsoe - rancho appreciated - POD 1 left TKR - Orthopedic management - pain management - - PT/OT
[2018-06-24] MEDS ORDERED: Cholecalciferol 1,000 INTLU TAB PO SCH (09:00)
--- NOTE | 2018-06-24 09:31 | OP ---
PROCEDURE DATE: 06/23/2018 PREOPERATIVE DIAGNOSES: 1. Primary tricompartmental osteoarthritis of the left knee. 2. Anterior and posterior synovitis. 3. Posterior capsular contracture. 4. Lateral patellar retinacular contracture. POSTOPERATIVE DIAGNOSES: 1. Primary tricompartmental osteoarthritis of the left knee. 2. Anterior and posterior synovitis. 3. Posterior capsular contracture. 4. Lateral patellar retinacular contracture. OPERATIVE FINDINGS: 1. Primary tricompartmental osteoarthritis of the left knee. 2. Anterior and posterior synovitis. 3. Posterior capsular contracture. 4. Lateral patellar retinacular contracture. PROCEDURES: 1. Primary left total knee replacement and arthroplasty. 2. Posterior capsular release. 3. Lateral patellar retinacular release. 4. Anterior and posterior synovectomy. 5. Computer navigation. SURGEON: Ji Bledsoe MD GARMENT TAG STRINGER: Suraj Arvizu PA-C SECOND RECONCILING CLERK: JYOTI Abernathy COMPLICATIONS: No complications. ANESTHESIA: General endotracheal anesthesia and spinal anesthesia. SPECIMENS REMOVED: Synovium, bone and cartilage. BLOOD LOSS: Approximately 100 mL. BLOOD PRODUCTS: No blood products given. DRAIN: Hemovac drain. POSTOPERATIVE CONDITION: Stable. TIME OF SURGERY: 09:55. Incision time in the room: 08:35 INDICATION FOR PROCEDURE: Shiloh Solano is a 67-year-old woman, well known to my practice, who presents with severe pain and restricted range of motion of the left knee. The patient was diagnosed with primary osteoarthritis. The patient can no longer withstand the discomfort. Informed consent was obtained. The possibility of mechanical failure, infection, thromboembolic disease, possibility of secondary or tertiary surgery was discussed. Different operative options were discussed including intraarticular injection which the patient had, benign neglect and arthroscopy. The patient wished the replacement to be accomplished. OPERATIVE PROCEDURE: After having obtained the informed consent, after having identified the side, site and procedure and critical pause/time-out after the satisfactory induction of the anesthetic, the patient was identified as Shiloh Solano in the supine position with all bony prominences well padded. The left lower extremity was prepped and free draped in the usual fashion for lower extremity surgery. The tourniquet had been applied but was not yet inflated. After exsanguinating the limb using a 6-inch Esmarch bandage, the tourniquet which had been applied was inflated to 350 mmHg. A straight midline approach was made to the knee. A 6-inch skin incision was carried down through the skin and subcutaneous tissue. Medial arthrotomy was accomplished. The patella was everted. The knee was flexed. Dissection was carried around posteromedially to the direct head of the semimembranosus tendon. A portion of the patellar ligament was elevated. Anterior and posterior cruciate ligaments were excised. Medial and lateral meniscectomies were accomplished. The tibia was dislocated anteriorly and the initial osteotomy of the arthroplasty will be accomplished on the tibial side. Computer navigation commenced and the anterior tibial strut for the accelerometer computer navigation was affixed with straps and with pins. The accelerometer was applied. The offset was set from the posterior insertion of the anterior cruciate ligament. Lateral malleolus was registered and medial malleolus was registered. The cut was set to 0 degrees varus and valgus, 3 degrees of posterior slope, 10 mm below the more prominent side of the tibial plateau. This having been accomplished, registration of computer navigation having been accomplished, the tibial osteotomy was accomplished, guidance to rotation of the lateral aspect of the tibial condyle, mid malleolar axis, medial third of the tibial tuberosity. Notch osteophytes and border osteophytes were removed. The tibial osteotomy was debrided. A portion of the iliotibial band was released. The pin was placed above the intercondylar notch. The distal cutting guide was fixed. Again, the sensor was applied as was the accelerometer. The hip center was found and the cut was set to 0 degrees on the mechanical axis. It was set at 10 mm in depth. The distal cut was accomplished 10 mm sizing for #2 femoral component, the #2 the 4-in-1 block was affixed. Anterior and posterior osteotomies were accomplished as well as chamfer cuts. There was found to be a capsular contracture. At this point in time, an anterior and posterior synovectomy was accomplished to eliminate irritative tissue which was very, very beefy red and irritated. Partial synovectomy having been accomplished, the posterior capsule was released, the lateral patellar retinaculum was released and the notch cutter was applied and the notch was reamed. At this point in time, the tibia was prepared for the #1 tibial component with 13 mm polyethylene. Flexion and extension gap was found to be excellent. Femoral trial was applied. Flexion and extension gap was found to be excellent. Lateral patellar retinacular release was accomplished from inside out. The patella was exposed. The patellar girth was 30 mm. Freehand patella osteotomy was accomplished and the patella was prepared and reamed. This having been accomplished with the 32 mm patella, patellar balance was excellent, extension and flexion balance was excellent. At this point in time, the femur, tibia and patella were prepared and the #2 cemented femoral component was applied, the #2 tibial tray, 13 mm polyethylene and 32 mm patella. The tourniquet was deflated. Hemostasis was controlled. Closures in layers with #2 FiberWire, #1 Vicryl, 0 Vicryl, 2-0 Vicryl, myriam to skin. A Silivo Buck compression dressing was applied. Knee immobilizer was applied. Postoperative x-rays revealed acceptable position of the construct. The operation could not have been completed without the assistantship of the PA and the certified registered nursing speech pathologist assistant. Ji Bledsoe MD
--- NOTE | 2018-06-24 09:45 | CP.PCM.PN ---
Subjective - Date & Time of Evaluation Date of Evaluation: 06/24/18 Time of Evaluation: 09:40 - Subjective Subjective: Patient is s/p left TKR, POD #1. Block wore off around 1AM last night and patient has been in severe pain since. The ordered Oxycodone 5mg and Dilaudid 0.5mg aren't not controlling her pain. Patient states that after her previous surgeries Percocet worked the best for her. Neurontin in the past produced constipation and flatulence that she didn't like. Objective - Vital Signs/Intake and Output Vital Signs (last 24 hours): Temp Pulse Resp BP Pulse Ox 98.8 F 77 20 144/62 95 06/24/18 08:39 06/24/18 08:39 06/24/18 08:39 06/24/18 08:39 06/24/18 08:39 - Medications Medications: Current Medications Acetaminophen (Tylenol 325mg Tab) 650 mg PO Q6 [facility] Last Admin: 06/24/18 04:02 Dose: Not Given Atorvastatin Calcium (Lipitor) 20 mg PO HS [facility] Last Admin: 06/23/18 21:59 Dose: 20 mg Cholecalciferol (Vitamin D) 2,000 intlu PO DAILY [facility] Docusate Sodium (Colace) 100 mg PO BID [facility] Last Admin: 06/23/18 17:55 Dose: 100 mg Duloxetine HCl (Cymbalta) 60 mg PO DAILY [facility] Enoxaparin Sodium (Lovenox) 40 mg SC DAILY [facility]; Protocol Fenofibrate (Tricor) 145 mg PO HS [facility] Last Admin: 06/23/18 21:59 Dose: 145 mg Hydromorphone HCl (Dilaudid) 0.5 mg IVP Q4 PRN PRN Reason: Pain, severe (8-10) Last Admin: 06/24/18 09:22 Dose: 0.5 mg Metformin HCl (Glucophage) 850 mg PO BIDWM [facility] Ondansetron HCl (Zofran Inj) 4 mg IVP Q6 PRN PRN Reason: Nausea/Vomiting Oxycodone HCl (Oxycodone Immediate Release Tab) 5 mg PO Q4H PRN PRN Reason: Pain, moderate (4-7) Last Admin: 06/24/18 04:39 Dose: 5 mg Paroxetine HCl (Paxil) 20 mg PO DAILY [facility] - Labs Labs: 06/24/18 05:30 06/24/18 05:30 - Constitutional Appears: In Acute Distress Assessment and Plan - Assessment and Plan (Free Text) Assessment: 67 yo woman s/p left TKR. - start Oxycontin 10mg q8h - increase Dilaudid to 1mg q4h PRN, can change to Percocet 10/325mg tomorrow - trial of Lyrica - patient can be discharged on Oxycontin and Percocet eventually
[2018-06-24] MEDS: Enoxaparin 40 mg Syringe SC SCH (09:48)
[2018-06-24] MEDS: oxyCODONE 10 mg ER Tab (oxyCONTIN) PO SCH ×2 (10:03→16:32)
--- NOTE | 2018-06-24 10:34 | CP.PCM.CON ---
History of Present Illness - History of Present Illness History of Present Illness: Asked to evaluate this 67 year old female who is a cigarette smoker with chronic cough. She has been a smoker of 1 PPD, but has recently decreased her use to about 1/2 PPD. She does have chronic productive cough W/O CARBAJAL. Past Patient History - Past Medical History & Family History Past Medical History?: Yes Past Family History: Reviewed and not pertinent - Past Social History Smoking Status: Heavy Smoker > 10 Cigarettes Daily Chewing Tobacco Use: No Cigar Use: No Alcohol: Social Drugs: Denies Home Situation {Lives}: With Family - CARDIAC Hx Cardiac Disorders: No - PULMONARY Hx Bronchitis: Yes Hx Pneumonia: Yes - NEUROLOGICAL Other/Comment: diabetic neuropathy LLE? - HEENT Hx Cataracts: Yes - RENAL Hx Chronic Kidney Disease: No - ENDOCRINE/METABOLIC Hx Diabetes Mellitus Type 2: Yes - HEMATOLOGICAL/ONCOLOGICAL Hx Cancer: Yes (left breast) - INTEGUMENTARY Hx Dermatological Problems: No - MUSCULOSKELETAL/RHEUMATOLOGICAL Hx Arthritis: Yes (joints,hands,feet) Hx Degenerative Joint Disease: Yes - GASTROINTESTINAL Hx Gastrointestinal Disorders: No - GENITOURINARY/GYNECOLOGICAL Hx Genitourinary Disorders: No - PSYCHIATRIC Hx Psychophysiologic Disorder: No - SURGICAL HISTORY Hx Appendectomy: Yes Hx Breast Biopsy: Yes (left--cancer 1999) Hx Hysterectomy: Yes (partial right knee, L THR) Hx Orthopedic Surgery: Yes (left total hip,left knee partial replacement) Other/Comment: bilateral breast reduction,cancer bilateral leg - ANESTHESIA Hx Anesthesia: Yes Hx Anesthesia Reactions: No Has any member of the family had a problem w/ anesthesia?: No Meds Allergies/Adverse Reactions: Allergies Allergy/AdvReac Type Severity Reaction Status Date / Time No Known Allergies Allergy Verified 06/23/18 07:37 - Medications Medications: Current Medications Acetaminophen (Tylenol 325mg Tab) 650 mg PO Q6 [facility] Last Admin: 06/24/18 04:02 Dose: Not Given Atorvastatin Calcium (Lipitor) 20 mg PO HS [facility] Last Admin: 06/23/18 21:59 Dose: 20 mg Cholecalciferol (Vitamin D) 2,000 intlu PO DAILY [facility] Docusate Sodium (Colace) 100 mg PO BID [facility] Last Admin: 06/24/18 09:48 Dose: 100 mg Duloxetine HCl (Cymbalta) 60 mg PO DAILY [facility] Last Admin: 06/24/18 09:48 Dose: 60 mg Enoxaparin Sodium (Lovenox) 40 mg SC DAILY [facility]; Protocol Last Admin: 06/24/18 09:48 Dose: 40 mg Fenofibrate (Tricor) 145 mg PO HS [facility] Last Admin: 06/23/18 21:59 Dose: 145 mg Hydromorphone HCl (Dilaudid) 1 mg IVP Q4 PRN PRN Reason: Pain, severe (8-10) Metformin HCl (Glucophage) 850 mg PO BIDWM [facility] Ondansetron HCl (Zofran Inj) 4 mg IVP Q6 PRN PRN Reason: Nausea/Vomiting Oxycodone HCl (Oxycontin Extended Release Tab) 10 mg PO Q8 [facility] Stop: 06/27/18 10:01 Last Admin: 06/24/18 10:03 Dose: 10 mg Paroxetine HCl (Paxil) 20 mg PO DAILY [facility] Last Admin: 06/24/18 09:48 Dose: 20 mg Pregabalin (Lyrica) 50 mg PO BID [facility] Last Admin: 06/24/18 10:02 Dose: 50 mg Physical Exam - Additional Findings Additional findings: Well-nourished, well-developed, in moderate distress because of pain at the operative site. The left lower extremity as an david wrap applied. The toes are pink and warm. The right lower extremity appears normal without any edema or cyanosis. Peripheral pulses are diminished but present. There is no palpable lymphadenopathy. Pharynx is pink and mucous membranes are moist without exudate. The neck is supple and trachea is midline. No neck vein distention or carotid bruit appreciated. No dullness on chest percussion. Equal expansion. Breath sounds appear slightly diminished bilaterally. Few scattered drake rhonchi heard in the bases posteriorly. No audible rales or wheezes. No bronchial breath sounds or egophony. Heart sounds are well heard. Rhythm is regular. Abdomen is soft and nontender with normal bowel sounds. Results - Vital Signs Recent Vital Signs: Last Vital Signs Temp 98.8 F 06/24/18 08:39 Pulse 77 06/24/18 08:39 Resp 20 06/24/18 08:39 BP 144/62 06/24/18 08:39 Pulse Ox 95 06/24/18 08:39 - Labs Result Diagrams: 06/24/18 05:30 06/24/18 05:30 Labs: Laboratory Results - last 24 hr 06/23/18 06/23/18 06/23/18 07:07 12:08 15:48 WBC RBC Hgb Hct MCV MCH MCHC RDW Plt Count Sodium Potassium Chloride Carbon Dioxide Anion Gap BUN Creatinine Est GFR ( Amer) Est GFR (Non-Af Amer) POC Glucose (mg/dL) 121 H 128 H 103 Random Glucose Calcium 06/23/18 06/24/18 06/24/18 21:30 05:21 05:30 WBC 8.1 RBC 3.56 L Hgb 11.7 L D Hct 34.7 MCV 97.3 MCH 32.8 H MCHC 33.7 RDW 13.8 Plt Count 226 Sodium Potassium Chloride Carbon Dioxide Anion Gap BUN Creatinine Est GFR ( Amer) Est GFR (Non-Af Amer) POC Glucose (mg/dL) 139 H 258 H Random Glucose Calcium 06/24/18 05:30 WBC RBC Hgb Hct MCV MCH MCHC RDW Plt Count Sodium 140 Potassium 4.1 Chloride 105 Carbon Dioxide 25 Anion Gap 14 BUN 19 H Creatinine 0.6 L Est GFR ( Amer) > 60 Est GFR (Non-Af Amer) > 60 POC Glucose (mg/dL) Random Glucose 233 H Calcium 9.1 Assessment & Plan (1) Cigarette smoker Status: Chronic Priority: High (2) Chronic cough Status: Chronic Priority: High (3) Poor sleep pattern Assessment and Plan: Also notes non-restorative sleep and daytime somnolence. Status: Chronic Priority: High - Assessment and Plan (Free Text) Plan: Has never had pulmonary function studies done. Needs eval when recovered from surgery. She has reduced her tobacco use from one PPD to about 1/2 PPD presently. Does admit to cough with small amounts of sputum on an almost daily basis. Denies any dyspnea on exertion. - Date & Time Date: 06/24/18 Time: 10:33
--- NOTE | 2018-06-24 11:50 | CP.PCM.CON ---
History of Present Illness - History of Present Illness History of Present Illness: THE PATIENT IS A 67 YEAR OLD FEMALE WHO UNDERWENT LEFT TKR YESTERDAY BY DR CHARLES FOR SEVERE OA THAT DID NOT IMPROVE WITH MEDICATIONS OR PHYSICAL THERAPY. I WAS CALLED TO SEE HER BY DR CHARLES. SHE ALSO HAS A HISTORY OF HYPERLIPIDEM IA AND TYPE 2 DM. SHE HAD PREVIOUS RIGHT KNEE AND LEFT HIP SURGERIES. SHE DENIES ANY KNOWN HEART PROBLEMS SUCH CAD. Past Patient History - Past Medical History & Family History Past Medical History?: Yes Past Family History: Reviewed and not pertinent - Past Social History Smoking Status: Heavy Smoker > 10 Cigarettes Daily Chewing Tobacco Use: No Cigar Use: No Alcohol: Social Drugs: Denies Home Situation {Lives}: With Family - CARDIAC Hx Cardiac Disorders: No - PULMONARY Hx Bronchitis: Yes Hx Pneumonia: Yes - NEUROLOGICAL Other/Comment: diabetic neuropathy LLE? - HEENT Hx Cataracts: Yes - RENAL Hx Chronic Kidney Disease: No - ENDOCRINE/METABOLIC Hx Diabetes Mellitus Type 2: Yes - HEMATOLOGICAL/ONCOLOGICAL Hx Cancer: Yes (left breast) - INTEGUMENTARY Hx Dermatological Problems: No - MUSCULOSKELETAL/RHEUMATOLOGICAL Hx Arthritis: Yes (joints,hands,feet) Hx Degenerative Joint Disease: Yes - GASTROINTESTINAL Hx Gastrointestinal Disorders: No - GENITOURINARY/GYNECOLOGICAL Hx Genitourinary Disorders: No - PSYCHIATRIC Hx Psychophysiologic Disorder: No - SURGICAL HISTORY Hx Appendectomy: Yes Hx Breast Biopsy: Yes (left--cancer 1999) Hx Hysterectomy: Yes (partial right knee, L THR) Hx Orthopedic Surgery: Yes (left total hip,left knee partial replacement) Other/Comment: bilateral breast reduction,cancer bilateral leg - ANESTHESIA Hx Anesthesia: Yes Hx Anesthesia Reactions: No Has any member of the family had a problem w/ anesthesia?: No Meds Allergies/Adverse Reactions: Allergies Allergy/AdvReac Type Severity Reaction Status Date / Time No Known Allergies Allergy Verified 06/23/18 07:37 - Medications Medications: Current Medications Acetaminophen (Tylenol 325mg Tab) 650 mg PO Q6 [facility] Last Admin: 06/24/18 04:02 Dose: Not Given Atorvastatin Calcium (Lipitor) 20 mg PO HS [facility] Last Admin: 06/23/18 21:59 Dose: 20 mg Cholecalciferol (Vitamin D) 2,000 intlu PO DAILY [facility] Docusate Sodium (Colace) 100 mg PO BID [facility] Last Admin: 06/24/18 09:48 Dose: 100 mg Duloxetine HCl (Cymbalta) 60 mg PO DAILY [facility] Last Admin: 06/24/18 09:48 Dose: 60 mg Enoxaparin Sodium (Lovenox) 40 mg SC DAILY [facility]; Protocol Last Admin: 06/24/18 09:48 Dose: 40 mg Fenofibrate (Tricor) 145 mg PO HS [facility] Last Admin: 06/23/18 21:59 Dose: 145 mg Hydromorphone HCl (Dilaudid) 1 mg IVP Q4 PRN PRN Reason: Pain, severe (8-10) Metformin HCl (Glucophage) 850 mg PO BIDWM [facility] Ondansetron HCl (Zofran Inj) 4 mg IVP Q6 PRN PRN Reason: Nausea/Vomiting Oxycodone HCl (Oxycontin Extended Release Tab) 10 mg PO Q8 [facility] Stop: 06/27/18 10:01 Last Admin: 06/24/18 10:03 Dose: 10 mg Paroxetine HCl (Paxil) 20 mg PO DAILY [facility] Last Admin: 06/24/18 09:48 Dose: 20 mg Pregabalin (Lyrica) 50 mg PO BID [facility] Last Admin: 06/24/18 10:02 Dose: 50 mg Physical Exam - Respiratory Exam Respiratory Exam: Clear to Auscultation Bilateral - Cardiovascular Exam Cardiovascular Exam: REGULAR RHYTHM, +S1 - Extremities Exam Additional comments: LLE IN DRESSINGS RLE WITHOUT EDEMA Results - Vital Signs Recent Vital Signs: Last Vital Signs Temp 98.8 F 06/24/18 08:39 Pulse 87 06/24/18 09:40 Resp 20 06/24/18 08:39 BP 144/62 06/24/18 08:39 Pulse Ox 98 06/24/18 09:40 - Labs Result Diagrams: 06/24/18 05:30 06/24/18 05:30 Labs: Laboratory Results - last 24 hr 06/23/18 06/23/18 06/23/18 07:07 12:08 15:48 WBC RBC Hgb Hct MCV MCH MCHC RDW Plt Count Sodium Potassium Chloride Carbon Dioxide Anion Gap BUN Creatinine Est GFR ( Amer) Est GFR (Non-Af Amer) POC Glucose (mg/dL) 121 H 128 H 103 Random Glucose Calcium 06/23/18 06/24/18 06/24/18 21:30 05:21 05:30 WBC 8.1 RBC 3.56 L Hgb 11.7 L D Hct 34.7 MCV 97.3 MCH 32.8 H MCHC 33.7 RDW 13.8 Plt Count 226 Sodium Potassium Chloride Carbon Dioxide Anion Gap BUN Creatinine Est GFR ( Amer) Est GFR (Non-Af Amer) POC Glucose (mg/dL) 139 H 258 H Random Glucose Calcium 06/24/18 05:30 WBC RBC Hgb Hct MCV MCH MCHC RDW Plt Count Sodium 140 Potassium 4.1 Chloride 105 Carbon Dioxide 25 Anion Gap 14 BUN 19 H Creatinine 0.6 L Est GFR ( Amer) > 60 Est GFR (Non-Af Amer) > 60 POC Glucose (mg/dL) Random Glucose 233 H Calcium 9.1 Assessment & Plan - Assessment and Plan (Free Text) Assessment: S/P LEFT TKR HYPERLIPIDEMIA TYPE 2 DM Plan: CONTINUE FENOFIBRATE, ATORVASTATIN, GLUCOPHAGE, LOVENOX FOR PHYSICAL THERAPY
--- NOTE | 2018-06-24 13:48 | CP.PCM.DIS ---
Addendum entered and electronically signed by Rai Kahn DPM 06/24/18 14:39: S: patient seen and evaluated, not resting comfortably, pain not controlled, states she is in 05/05 pain O: examination hindered by guarding from pain at left LE A: POD 1 left TKR P: pain not controlled, will plan for d/c home tomorrow with home PT service once pain controlled Original Note: <Rai Kahn - Last Filed: 06/24/18 13:46> Provider - Provider Date of Admission: 06/23/18 08:28 Attending physician: Mike Ruiz Primary care physician: Ji Warner III, MD Consults: Ortho - Dr. Warner Cardiology - Dr. Vasques Pain managment - Dr. Whitehead Pulmonary - Dr. Gallegos Time Spent in preparation of Discharge (in minutes): 30 Diagnosis - Discharge Diagnosis (1) Primary osteoarthritis of left knee Status: Acute Hospital Course - Lab Results Lab Results: Most Recent Lab Values WBC 8.1 K/uL (4.8-10.8) 06/24/18 05:30 RBC 3.56 Mil/uL (3.80-5.20) L 06/24/18 05:30 Hgb 11.7 g/dL (12.0-16.0) L D 06/24/18 05:30 Hct 34.7 % (34.0-47.0) 06/24/18 05:30 MCV 97.3 fl (81.0-99.0) 06/24/18 05:30 MCH 32.8 pg (27.0-31.0) H 06/24/18 05:30 MCHC 33.7 g/dL (33.0-37.0) 06/24/18 05:30 RDW 13.8 % (11.5-14.5) 06/24/18 05:30 Plt Count 226 K/uL (130-400) 06/24/18 05:30 MPV 8.4 fl (7.2-11.7) 06/23/18 06:45 Neut % (Auto) 49.1 % (50.0-75.0) L 06/23/18 06:45 Lymph % (Auto) 38.7 % (20.0-40.0) 06/23/18 06:45 [place] % (Auto) 9.1 % (0.0-10.0) 06/23/18 06:45 Eos % (Auto) 2.5 % (0.0-4.0) 06/23/18 06:45 Baso % (Auto) 0.6 % (0.0-2.0) 06/23/18 06:45 Neut # (Auto) 3.4 K/uL (1.8-7.0) 06/23/18 06:45 Lymph # (Auto) 2.7 K/uL (1.0-4.3) 06/23/18 06:45 [place] # (Auto) 0.6 K/uL (0.0-0.8) 06/23/18 06:45 Eos # (Auto) 0.2 K/uL (0.0-0.7) 06/23/18 06:45 Baso # (Auto) 0.0 K/uL (0.0-0.2) 06/23/18 06:45 Sodium 140 mmol/l (132-148) 06/24/18 05:30 Potassium 4.1 MMOL/L (3.6-5.0) 06/24/18 05:30 Chloride 105 mmol/L (98-107) 06/24/18 05:30 Carbon Dioxide 25 mmol/L (22-30) 06/24/18 05:30 Anion Gap 14 (10-20) 06/24/18 05:30 BUN 19 mg/dl (7-17) H 06/24/18 05:30 Creatinine 0.6 mg/dl (0.7-1.2) L 06/24/18 05:30 Est GFR ( Amer) > 60 06/24/18 05:30 Est GFR (Non-Af Amer) > 60 06/24/18 05:30 POC Glucose (mg/dL) 215 mg/dL (65-110) H 06/24/18 11:57 Random Glucose 233 mg/dL (65-105) H 06/24/18 05:30 Calcium 9.1 mg/dL (8.4-10.2) 06/24/18 05:30 25-OH Vitamin D Total 51.0 NG/ML (30.0-100.0) 06/24/18 05:30 Blood Type O POSITIVE 06/23/18 06:45 Antibody Screen Negative 06/23/18 06:45 Crossmatch See Detail 06/23/18 06:45 BBK History Checked Patient has bt 06/23/18 06:45 - Hospital Course Hospital Course: 67 yo female patient with pmhx of DMII with polyneuropathy, HTN, and osteoarthritis of left knee seen in [facility] for left TKR. Patient failed all conservative and outpatient therapy and knee was painful with ambulation which prevented her from ambulating comfortably. She had previous TKR on the right side which was successful. Today she is POD 1 left TKR. She was seen by pain management and started oxycontin 10mg q8h and dilaudid was increased to 1mg q4h PRN, and to be discharged on percocet 10/325 and oxycontin. Patient is able to void without assistance and has been able to eat. When pain is controlled she is stable for discharge. Patientw as seen and evalauted by Dr. Vasques manager performance and will continue fenofibrate, atorvastatin, glucophage, and lovenox while in house for DVT prophylaxis. Examined by closet builder Dr. Gallegos who stated needs pulmonary function tests when recovered from surgery. PT evaluated and stated that she will benefit from further skilled PT and recommended either [facility] or home PT service and patient refused [facility]. - Date & Time of H&P Date of H&P: 06/24/18 Time of H&P: 13:47 Discharge Exam - Head Exam Head Exam: ATRAUMATIC, NORMOCEPHALIC - Eye Exam Eye Exam: EOMI, Normal appearance, PERRL - ENT Exam ENT Exam: Mucous Membranes Moist - Neck Exam Neck exam: Normal Inspection - Respiratory Exam Respiratory Exam: Clear to PA & Lateral, NORMAL BREATHING PATTERN - Cardiovascular Exam Cardiovascular Exam: REGULAR RHYTHM, +S1, +S2 - GI/Abdominal Exam GI & Abdominal Exam: Normal Bowel Sounds, Soft - Extremities Exam Extremities exam: normal capillary refill, pedal pulses present - Neurological Exam Neurological exam: Alert, Oriented x3 - Psychiatric Exam Psychiatric exam: Normal Affect, Normal Mood - Skin Skin Exam: Dry, Warm Discharge Plan - Follow Up Plan Condition: GOOD Disposition: REHAB FACILITY/REHAB UNIT Instructions: Total Knee Replacement (DC), Knee Immobilizer (DC), Weight- Bearing Restrictions Additional Instructions: follow up with dr warner 5-7 days [facility] VNS: Referrals: Ji Warner III, MD [Primary Care Provider] - Clinical Quality Measures - Date & Time of Discharge Summary Date of Discharge Summary: 06/24/18 Time of Discharge Summary: 13:48 <Marija Pedroza - Last Filed: 06/25/18 17:26> Provider - Provider Date of Admission: 06/23/18 08:28 Attending physician: Mike Ruiz Primary care physician: Ji Warner III, MD Hospital Course - Lab Results Lab Results: Most Recent Lab Values WBC 8.6 K/uL (4.8-10.8) 06/25/18 05:40 RBC 3.55 Mil/uL (3.80-5.20) L 06/25/18 05:40 Hgb 11.6 g/dL (12.0-16.0) L 06/25/18 05:40 Hct 34.6 % (34.0-47.0) 06/25/18 05:40 MCV 97.3 fl (81.0-99.0) 06/25/18 05:40 MCH 32.5 pg (27.0-31.0) H 06/25/18 05:40 MCHC 33.4 g/dL (33.0-37.0) 06/25/18 05:40 RDW 13.4 % (11.5-14.5) 06/25/18 05:40 Plt Count 226 K/uL (130-400) 06/25/18 05:40 MPV 9.0 fl (7.2-11.7) 06/25/18 05:40 Neut % (Auto) 71.3 % (50.0-75.0) 06/25/18 05:40 Lymph % (Auto) 15.8 % (20.0-40.0) L 06/25/18 05:40 [place] % (Auto) 12.6 % (0.0-10.0) H 06/25/18 05:40 Eos % (Auto) 0.0 % (0.0-4.0) 06/25/18 05:40 Baso % (Auto) 0.3 % (0.0-2.0) 06/25/18 05:40 Neut # (Auto) 6.1 K/uL (1.8-7.0) 06/25/18 05:40 Lymph # (Auto) 1.4 K/uL (1.0-4.3) 06/25/18 05:40 [place] # (Auto) 1.1 K/uL (0.0-0.8) H 06/25/18 05:40 Eos # (Auto) 0.0 K/uL (0.0-0.7) 06/25/18 05:40 Baso # (Auto) 0.0 K/uL (0.0-0.2) 06/25/18 05:40 Sodium 138 mmol/l (132-148) 06/25/18 05:40 Potassium 4.0 MMOL/L (3.6-5.0) 06/25/18 05:40 Chloride 106 mmol/L (98-107) 06/25/18 05:40 Carbon Dioxide 23 mmol/L (22-30) 06/25/18 05:40 Anion Gap 13 (10-20) 06/25/18 05:40 BUN 10 mg/dl (7-17) 06/25/18 05:40 Creatinine 0.6 mg/dl (0.7-1.2) L 06/25/18 05:40 Est GFR ( Amer) > 60 06/25/18 05:40 Est GFR (Non-Af Amer) > 60 06/25/18 05:40 POC Glucose (mg/dL) 262 mg/dL (65-110) H 06/25/18 10:54 Random Glucose 177 mg/dL (65-105) H 06/25/18 05:40 Calcium 9.2 mg/dL (8.4-10.2) 06/25/18 05:40 25-OH Vitamin D Total 51.0 NG/ML (30.0-100.0) 06/24/18 05:30 Blood Type O POSITIVE 06/23/18 06:45 Antibody Screen Negative 06/23/18 06:45 Crossmatch See Detail 06/23/18 06:45 BBK History Checked Patient has bt 06/23/18 06:45 Attending/Attestation - Attestation I have personally seen and examined this patient.: Yes I have fully participated in the care of the patient.: Yes I have reviewed all pertinent clinical information, including history, physical exam and plan: Yes Notes (Text): 06/25/18 17:26 Seen examined and discussed with resident. Agree with findings and plan as above. Pain was uncontrolled. For discharge tomorrow once no longer requiring IV pain meds.
[2018-06-24] MEDS ORDERED: Dextrose 50% SYRINGE Inj (50 ml) IV PRN (17:26)
[2018-06-24] MEDS ORDERED: Glucagon Recombinant 1 mg Inj IM PRN (17:26)
[2018-06-24] MEDS: Cholecalciferol 1,000 INTLU TAB PO SCH (18:57)
[2018-06-24] MEDS: Insulin Regular 100 units/ml SC SCH (21:53)
[2018-06-24 23:55] VITALS: O2SAT 95
[2018-06-25] MEDS: oxyCODONE 10 mg ER Tab (oxyCONTIN) PO SCH ×2 (00:04→08:58)
[2018-06-25 07:08] LABS: BASO % 0.3 % (0.0-2.0); HEMOGLOBIN 11.6 g/dL (12.0-16.0); LYMPH # 1.4 K/uL (1.0-4.3); LYMPH % 15.8 % (20.0-40.0); MEAN CELL VOLUME 97.3 fl (81.0-99.0); MEAN CORPUSCULAR HEMOGLOBIN 32.5 pg (27.0-31.0); MEAN CORPUSCULAR HGB CONC 33.4 g/dL (33.0-37.0); MONO # 1.1 K/uL (0.0-0.8); MONO % 12.6 % (0.0-10.0); NEUT # 6.1 K/uL (1.8-7.0); NEUT % 71.3 % (50.0-75.0); RBC 3.55 Mil/uL (3.80-5.20); RED CELL DISTRIBUTION WIDTH 13.4 % (11.5-14.5); WHITE BLOOD COUNT 8.6 K/uL (4.8-10.8)
[2018-06-25 07:35] LABS: BLOOD UREA NITROGEN 10 mg/dl (7-17); CALCIUM 9.2 mg/dL (8.4-10.2); GFR NON-AFRICAN AMERICAN > 60
[2018-06-25 07:54] VITALS: BP 163/65; PULSE 82; RESP 20
[2018-06-25] MEDS: Enoxaparin 40 mg Syringe SC SCH (08:48)
[2018-06-25] MEDS: Cholecalciferol 1,000 INTLU TAB PO SCH (08:49)
[2018-06-25] MEDS: Insulin Regular 100 units/ml SC SCH ×2 (08:50→11:35)
[2018-06-25] MEDS ORDERED: guaiFENesin 600 mg ER Tab PO SCH (10:00)
--- NOTE | 2018-06-25 10:07 | CP.PCM.PN ---
Subjective - Date & Time of Evaluation Date of Evaluation: 06/25/18 Time of Evaluation: 10:30 - Subjective Subjective: ON COMPLAINT IS LEFT KNEE SURGICAL SITE PAIN Objective - Vital Signs/Intake and Output Vital Signs (last 24 hours): Temp Pulse Resp BP Pulse Ox 99.1 F 82 20 163/65 H 95 06/25/18 07:53 06/25/18 07:53 06/25/18 07:53 06/25/18 07:53 06/25/18 07:53 - Medications Medications: Current Medications Acetaminophen (Tylenol 325mg Tab) 650 mg PO Q6 [facility] Last Admin: 06/25/18 04:33 Dose: Not Given Atorvastatin Calcium (Lipitor) 20 mg PO HS [facility] Last Admin: 06/24/18 21:58 Dose: 20 mg Cholecalciferol (Vitamin D) 2,000 intlu PO DAILY [facility] Last Admin: 06/25/18 08:49 Dose: 2,000 intlu Dextrose (Dextrose 50% Inj) 0 ml IV STAT PRN; Protocol PRN Reason: Hypoglycemia Protocol Dextrose (Glutose 15) 0 gm PO ONCE PRN; Protocol PRN Reason: Hypoglycemia Protocol Docusate Sodium (Colace) 100 mg PO BID [facility] Last Admin: 06/25/18 08:48 Dose: 100 mg Duloxetine HCl (Cymbalta) 60 mg PO DAILY [facility] Last Admin: 06/25/18 08:49 Dose: 60 mg Enoxaparin Sodium (Lovenox) 40 mg SC DAILY [facility]; Protocol Last Admin: 06/25/18 08:48 Dose: 40 mg Fenofibrate (Tricor) 145 mg PO [facility] Last Admin: 06/24/18 23:43 Dose: 145 mg Glucagon (Glucagen Diagnostic Kit) 0 mg IM STAT PRN; Protocol PRN Reason: Hypoglycemia Protocol Guaifenesin (Mucinex La) 600 mg PO Q12 [facility] Hydromorphone HCl (Dilaudid) 1 mg IVP Q4 PRN PRN Reason: Pain, severe (8-10) Last Admin: 06/24/18 19:52 Dose: 1 mg Insulin Human Regular (Humulin R) 0 units SC [facility]; Protocol Last Admin: 06/25/18 08:50 Dose: 1 unit Metformin HCl (Glucophage) 850 mg PO BIDWM [facility] Ondansetron HCl (Zofran Inj) 4 mg IVP Q6 PRN PRN Reason: Nausea/Vomiting Oxycodone HCl (Oxycontin Extended Release Tab) 10 mg PO Q8 [facility] Stop: 06/27/18 10:01 Last Admin: 06/25/18 08:58 Dose: 10 mg Paroxetine HCl (Paxil) 20 mg PO DAILY [facility] Last Admin: 06/25/18 08:49 Dose: 20 mg Pregabalin (Lyrica) 50 mg PO BID [facility] Last Admin: 06/25/18 08:58 Dose: 50 mg - Labs Labs: 06/25/18 05:40 06/25/18 05:40 - Respiratory Exam Respiratory Exam: Clear to Ausculation Bilateral - Cardiovascular Exam Cardiovascular Exam: REGULAR RHYTHM, +S1, +S2 - Extremities Exam Additional comments: LLE WITH SURGICAL DRESSINGS RLE WITHOUT EDEMA Assessment and Plan - Assessment and Plan (Free Text) Assessment: LEFT TKR HYPERLIPIDEMIA TYPE 2 DM Plan: FOR DISCHARGE TODAY
--- NOTE | 2018-06-25 10:09 | CP.PCM.PN ---
Subjective - Date & Time of Evaluation Date of Evaluation: 06/25/18 Time of Evaluation: 10:00 - Subjective Subjective: Seated in bedside chair, complaining of pain 04/04. Plan is for discharge to home today with home PT. Vital signs have remained stable. BP elevated maybe secondary to pain. Poor sleep last night, again secondary to pain. No complaint of cough or shortness of breath. Incentive spirometer is at the bedside. Rhonchi are auscultated in the lower lobes posteriorly in both lungs. No rales or wheezes or bronchial breathing heard. Rhonchi are partially cleared by deepb breathing and cough. No cyanosis, LLE AUTUMN wrapped w/o calf tenderness. Instructed on need for deep breathing and coughing at home. Counselled about NOT resuming tobacco once she is home. Instructed to use OTC Mucinex BID after discharge (one dose now). Start CPT with flutter valve prior to discharge, and continue at home. Patient has tried Chantix in the past with bizarre dreams leading to discontinuance. Objective - Vital Signs/Intake and Output Vital Signs (last 24 hours): Temp Pulse Resp BP Pulse Ox 99.1 F 82 20 163/65 H 95 06/25/18 07:53 06/25/18 07:53 06/25/18 07:53 06/25/18 07:53 06/25/18 07:53 - Medications Medications: Current Medications Acetaminophen (Tylenol 325mg Tab) 650 mg PO Q6 [facility] Last Admin: 06/25/18 04:33 Dose: Not Given Atorvastatin Calcium (Lipitor) 20 mg PO HS [facility] Last Admin: 06/24/18 21:58 Dose: 20 mg Cholecalciferol (Vitamin D) 2,000 intlu PO DAILY [facility] Last Admin: 06/25/18 08:49 Dose: 2,000 intlu Dextrose (Dextrose 50% Inj) 0 ml IV STAT PRN; Protocol PRN Reason: Hypoglycemia Protocol Dextrose (Glutose 15) 0 gm PO ONCE PRN; Protocol PRN Reason: Hypoglycemia Protocol Docusate Sodium (Colace) 100 mg PO BID [facility] Last Admin: 06/25/18 08:48 Dose: 100 mg Duloxetine HCl (Cymbalta) 60 mg PO DAILY [facility] Last Admin: 06/25/18 08:49 Dose: 60 mg Enoxaparin Sodium (Lovenox) 40 mg SC DAILY [facility]; Protocol Last Admin: 06/25/18 08:48 Dose: 40 mg Fenofibrate (Tricor) 145 mg PO HS [facility] Last Admin: 06/24/18 23:43 Dose: 145 mg Glucagon (Glucagen Diagnostic Kit) 0 mg IM STAT PRN; Protocol PRN Reason: Hypoglycemia Protocol Guaifenesin (Mucinex [place]) 600 mg PO Q12 [facility] Hydromorphone HCl (Dilaudid) 1 mg IVP Q4 PRN PRN Reason: Pain, severe (8-10) Last Admin: 06/24/18 19:52 Dose: 1 mg Insulin Human Regular (Humulin R) 0 units SC [facility]; Protocol Last Admin: 06/25/18 08:50 Dose: 1 unit Metformin HCl (Glucophage) 850 mg PO BIDWM [facility] Ondansetron HCl (Zofran Inj) 4 mg IVP Q6 PRN PRN Reason: Nausea/Vomiting Oxycodone HCl (Oxycontin Extended Release Tab) 10 mg PO Q8 [facility] Stop: 06/27/18 10:01 Last Admin: 06/25/18 08:58 Dose: 10 mg Paroxetine HCl (Paxil) 20 mg PO DAILY [facility] Last Admin: 06/25/18 08:49 Dose: 20 mg Pregabalin (Lyrica) 50 mg PO BID [facility] Last Admin: 06/25/18 08:58 Dose: 50 mg - Labs Labs: 06/25/18 05:40 06/25/18 05:40 Assessment and Plan (1) Cigarette smoker Status: Chronic (2) Chronic cough Status: Chronic (3) Poor sleep pattern Status: Chronic
--- NOTE | 2018-06-25 11:48 | CP.PCM.DIS ---
<Josep Kahnson - Last Filed: 06/25/18 14:47> Provider - Provider Date of Admission: 06/23/18 08:28 Attending physician: Mike Ruiz Primary care physician: Ji Warner III, MD Consults: Ortho - Dr. Warner Cardiology - Dr. Vasques Pain managment - Dr. Whitehead Pulmonary - Dr. Gallegos Time Spent in preparation of Discharge (in minutes): 30 Diagnosis - Discharge Diagnosis (1) Primary osteoarthritis of left knee Status: Acute Hospital Course - Lab Results Lab Results: Most Recent Lab Values WBC 8.6 K/uL (4.8-10.8) 06/25/18 05:40 RBC 3.55 Mil/uL (3.80-5.20) L 06/25/18 05:40 Hgb 11.6 g/dL (12.0-16.0) L 06/25/18 05:40 Hct 34.6 % (34.0-47.0) 06/25/18 05:40 MCV 97.3 fl (81.0-99.0) 06/25/18 05:40 MCH 32.5 pg (27.0-31.0) H 06/25/18 05:40 MCHC 33.4 g/dL (33.0-37.0) 06/25/18 05:40 RDW 13.4 % (11.5-14.5) 06/25/18 05:40 Plt Count 226 K/uL (130-400) 06/25/18 05:40 MPV 9.0 fl (7.2-11.7) 06/25/18 05:40 Neut % (Auto) 71.3 % (50.0-75.0) 06/25/18 05:40 Lymph % (Auto) 15.8 % (20.0-40.0) L 06/25/18 05:40 [place] % (Auto) 12.6 % (0.0-10.0) H 06/25/18 05:40 Eos % (Auto) 0.0 % (0.0-4.0) 06/25/18 05:40 Baso % (Auto) 0.3 % (0.0-2.0) 06/25/18 05:40 Neut # (Auto) 6.1 K/uL (1.8-7.0) 06/25/18 05:40 Lymph # (Auto) 1.4 K/uL (1.0-4.3) 06/25/18 05:40 Barn[place] # (Auto) 1.1 K/uL (0.0-0.8) H 06/25/18 05:40 Eos # (Auto) 0.0 K/uL (0.0-0.7) 06/25/18 05:40 Baso # (Auto) 0.0 K/uL (0.0-0.2) 06/25/18 05:40 Sodium 138 mmol/l (132-148) 06/25/18 05:40 Potassium 4.0 MMOL/L (3.6-5.0) 06/25/18 05:40 Chloride 106 mmol/L (98-107) 06/25/18 05:40 Carbon Dioxide 23 mmol/L (22-30) 06/25/18 05:40 Anion Gap 13 (10-20) 06/25/18 05:40 BUN 10 mg/dl (7-17) 06/25/18 05:40 Creatinine 0.6 mg/dl (0.7-1.2) L 06/25/18 05:40 Est GFR ( Amer) > 60 06/25/18 05:40 Est GFR (Non-Af Amer) > 60 06/25/18 05:40 POC Glucose (mg/dL) 262 mg/dL (65-110) H 06/25/18 10:54 Random Glucose 177 mg/dL (65-105) H 06/25/18 05:40 Calcium 9.2 mg/dL (8.4-10.2) 06/25/18 05:40 25-OH Vitamin D Total 51.0 NG/ML (30.0-100.0) 06/24/18 05:30 Blood Type O POSITIVE 06/23/18 06:45 Antibody Screen Negative 06/23/18 06:45 Crossmatch See Detail 06/23/18 06:45 BBK History Checked Patient has bt 06/23/18 06:45 - Hospital Course Hospital Course: 67 yo female patient with pmhx of DMII with polyneuropathy, HTN, and osteoarthritis of left knee seen in [facility] for left TKR. Patient failed all conservative and outpatient therapy and knee was painful with ambulation which prevented her from ambulating comfortably. She had previous TKR on the right side which was successful. Today she is POD 1 left TKR. She was seen by pain management and started oxycontin 10mg q8h and dilaudid was increased to 1mg q4h PRN, and to be discharged on percocet 10/325 and oxycontin. Patient is able to void without assistance and has been able to eat. When pain is controlled she is stable for discharge. Patient was seen and evalauted by Dr. Vasques roofing plant supervisor and will continue fenofibrate, atorvastatin, glucophage, and lovenox while in house for DVT prophylaxis. Examined by newborn hearing screener Dr. Gallegos who stated needs pulmonary function tests when recovered from surgery. PT evaluated and stated that she will benefit from further skilled PT and recommended either [facility] or home PT service. Patient to be discharged to TCU for PT and deconditioning. - Date & Time of H&P Date of H&P: 06/25/18 Time of H&P: 11:48 Discharge Exam - Head Exam Head Exam: ATRAUMATIC, NORMOCEPHALIC - Eye Exam Eye Exam: EOMI, Normal appearance, PERRL - ENT Exam ENT Exam: Mucous Membranes Moist - Neck Exam Neck exam: Normal Inspection - Respiratory Exam Respiratory Exam: Clear to PA & Lateral, NORMAL BREATHING PATTERN - Cardiovascular Exam Cardiovascular Exam: REGULAR RHYTHM, +S1, +S2 - GI/Abdominal Exam GI & Abdominal Exam: Normal Bowel Sounds, Soft - Extremities Exam Extremities exam: normal capillary refill, pedal pulses present - Neurological Exam Neurological exam: Alert, Oriented x3 - Psychiatric Exam Psychiatric exam: Normal Affect, Normal Mood - Skin Skin Exam: Dry, Warm Discharge Plan - Follow Up Plan Condition: GOOD Disposition: REHAB FACILITY/REHAB UNIT Instructions: Total Knee Replacement (DC), Knee Immobilizer (DC), Weight- Bearing Restrictions Additional Instructions: follow up with dr warner 5-7 days ned trujillo VNS: Referrals: Ji Warner III, MD [Primary Care Provider] - Clinical Quality Measures - Date & Time of Discharge Summary Date of Discharge Summary: 06/25/18 Time of Discharge Summary: 11:49 <Marija Pedroza - Last Filed: 06/25/18 17:36> Provider - Provider Date of Admission: 06/23/18 08:28 Attending physician: Mike Ruiz Primary care physician: Ji Warner III, MD Hospital Course - Lab Results Lab Results: Most Recent Lab Values WBC 8.6 K/uL (4.8-10.8) 06/25/18 05:40 RBC 3.55 Mil/uL (3.80-5.20) L 06/25/18 05:40 Hgb 11.6 g/dL (12.0-16.0) L 06/25/18 05:40 Hct 34.6 % (34.0-47.0) 06/25/18 05:40 MCV 97.3 fl (81.0-99.0) 06/25/18 05:40 MCH 32.5 pg (27.0-31.0) H 06/25/18 05:40 MCHC 33.4 g/dL (33.0-37.0) 06/25/18 05:40 RDW 13.4 % (11.5-14.5) 06/25/18 05:40 Plt Count 226 K/uL (130-400) 06/25/18 05:40 MPV 9.0 fl (7.2-11.7) 06/25/18 05:40 Neut % (Auto) 71.3 % (50.0-75.0) 06/25/18 05:40 Lymph % (Auto) 15.8 % (20.0-40.0) L 06/25/18 05:40 [place] % (Auto) 12.6 % (0.0-10.0) H 06/25/18 05:40 Eos % (Auto) 0.0 % (0.0-4.0) 06/25/18 05:40 Baso % (Auto) 0.3 % (0.0-2.0) 06/25/18 05:40 Neut # (Auto) 6.1 K/uL (1.8-7.0) 06/25/18 05:40 Lymph # (Auto) 1.4 K/uL (1.0-4.3) 06/25/18 05:40 [place] # (Auto) 1.1 K/uL (0.0-0.8) H 06/25/18 05:40 Eos # (Auto) 0.0 K/uL (0.0-0.7) 06/25/18 05:40 Baso # (Auto) 0.0 K/uL (0.0-0.2) 06/25/18 05:40 Sodium 138 mmol/l (132-148) 06/25/18 05:40 Potassium 4.0 MMOL/L (3.6-5.0) 06/25/18 05:40 Chloride 106 mmol/L (98-107) 06/25/18 05:40 Carbon Dioxide 23 mmol/L (22-30) 06/25/18 05:40 Anion Gap 13 (10-20) 06/25/18 05:40 BUN 10 mg/dl (7-17) 06/25/18 05:40 Creatinine 0.6 mg/dl (0.7-1.2) L 06/25/18 05:40 Est GFR ( Amer) > 60 06/25/18 05:40 Est GFR (Non-Af Amer) > 60 06/25/18 05:40 POC Glucose (mg/dL) 262 mg/dL (65-110) H 06/25/18 10:54 Random Glucose 177 mg/dL (65-105) H 06/25/18 05:40 Calcium 9.2 mg/dL (8.4-10.2) 06/25/18 05:40 25-OH Vitamin D Total 51.0 NG/ML (30.0-100.0) 06/24/18 05:30 Blood Type O POSITIVE 06/23/18 06:45 Antibody Screen Negative 06/23/18 06:45 Crossmatch See Detail 06/23/18 06:45 BBK History Checked Patient has bt 06/23/18 06:45 Attending/Attestation - Attestation I have personally seen and examined this patient.: Yes I have fully participated in the care of the patient.: Yes I have reviewed all pertinent clinical information, including history, physical exam and plan: Yes Notes (Text): 06/25/18 17:36 Seen examined and discussed with resident. Agree with findings and plan as above. Patient stable for discharge home with appropriate pain control. Follow upw ith ortho and pcp.
[2018-06-25 11:58] VITALS: TEMP 99
--- NOTE | 2018-06-25 12:15 | CP.PCM.PN ---
Subjective - Date & Time of Evaluation Date of Evaluation: 06/25/18 Time of Evaluation: 10:00 - Subjective Subjective: Patient seen and examined OOB to chair comfortable. Pain is well controlled this AM. She offers no new complaints. Denies CP/SOB/fever/[place]. She is to be transferred to TCU today. Objective - Vital Signs/Intake and Output Vital Signs (last 24 hours): Temp Pulse Resp BP Pulse Ox 99 F 82 20 163/65 H 95 06/25/18 11:54 06/25/18 07:53 06/25/18 07:53 06/25/18 07:53 06/25/18 07:53 - Medications Medications: Current Medications Acetaminophen (Tylenol 325mg Tab) 650 mg PO Q6 [facility] Last Admin: 06/25/18 11:54 Dose: 650 mg Atorvastatin Calcium (Lipitor) 20 mg PO HS [facility] Last Admin: 06/24/18 21:58 Dose: 20 mg Cholecalciferol (Vitamin D) 2,000 intlu PO DAILY [facility] Last Admin: 06/25/18 08:49 Dose: 2,000 intlu Dextrose (Dextrose 50% Inj) 0 ml IV STAT PRN; Protocol PRN Reason: Hypoglycemia Protocol Dextrose (Glutose 15) 0 gm PO ONCE PRN; Protocol PRN Reason: Hypoglycemia Protocol Docusate Sodium (Colace) 100 mg PO BID [facility] Last Admin: 06/25/18 08:48 Dose: 100 mg Duloxetine HCl (Cymbalta) 60 mg PO DAILY [facility] Last Admin: 06/25/18 08:49 Dose: 60 mg Enoxaparin Sodium (Lovenox) 40 mg SC DAILY [facility]; Protocol Last Admin: 06/25/18 08:48 Dose: 40 mg Fenofibrate (Tricor) 145 mg PO HS [facility] Last Admin: 06/24/18 23:43 Dose: 145 mg Glucagon (Glucagen Diagnostic Kit) 0 mg IM STAT PRN; Protocol PRN Reason: Hypoglycemia Protocol Guaifenesin (Mucinex La) 600 mg PO Q12 [facility] Last Admin: 06/25/18 10:29 Dose: 600 mg Hydromorphone HCl (Dilaudid) 1 mg IVP Q4 PRN PRN Reason: Pain, severe (8-10) Last Admin: 06/24/18 19:52 Dose: 1 mg Insulin Human Regular (Humulin R) 0 units SC ACHS [facility]; Protocol Last Admin: 06/25/18 08:50 Dose: 1 unit Metformin HCl (Glucophage) 850 mg PO BIDWM [facility] Ondansetron HCl (Zofran Inj) 4 mg IVP Q6 PRN PRN Reason: Nausea/Vomiting Oxycodone HCl (Oxycontin Extended Release Tab) 10 mg PO Q8 [facility] Stop: 06/27/18 10:01 Last Admin: 06/25/18 08:58 Dose: 10 mg Paroxetine HCl (Paxil) 20 mg PO DAILY [facility] Last Admin: 06/25/18 08:49 Dose: 20 mg Pregabalin (Lyrica) 50 mg PO BID [facility] Last Admin: 06/25/18 08:58 Dose: 50 mg - Labs Labs: 06/25/18 05:40 06/25/18 05:40 - Extremities Exam Additional comments: L knee: knee imm in place Dressings CDI, Dressings removed revealing wound CDI with myriam, no drainage sensation intact SP/DP/TN motor intact EHL/FHL/TA/G pedal pulses intact comps soft NT b/l Assessment and Plan (1) Primary osteoarthritis of left knee Assessment & Plan: POD #2 s/p L TKA -Pain well controlled -PT/OT WBAT with RW -knee imm and CPM as per order -orthopedically stable for discharge to TCU -above d/w Dr. Bledsoe in agreement Status: Acute
== END 2018-06-25 13:34 | DRG 470 ==
LOC: H.OPSURG 06:25 → H.MEDSURG1 08:28
PROVIDERS: ADMIT Internal Medicine; ATTEND Internal Medicine
PROC: 0SRD0J9 Replacement of Left Knee Joint with Synthetic Substitute, Cemented, Open Approach (ICD-10-PCS; principal; 2018-06-23 07:45)
PROC: 3E0T3BZ Introduction of Anesthetic Agent into Peripheral Nerves and Plexi, Percutaneous Approach (ICD-10-PCS; 2018-06-23 07:45)
DX: M17.12 Unilateral primary osteoarthritis, left knee (principal); M65.862 Other synovitis and tenosynovitis, left lower leg; E11.42 Type 2 diabetes mellitus with diabetic polyneuropathy; Z96.642 Presence of left artificial hip joint; Z96.651 Presence of right artificial knee joint; J41.0 Simple chronic bronchitis; I10 Essential (primary) hypertension; E78.5 Hyperlipidemia, unspecified; G47.8 Other sleep disorders; E78.00 Pure hypercholesterolemia, unspecified; F17.210 Nicotine dependence, cigarettes, uncomplicated; Z87.01 Personal history of pneumonia (recurrent); Z85.3 Personal history of malignant neoplasm of breast; Z90.710 Acquired absence of both cervix and uterus

== ENCOUNTER 2018-06-25 13:32 | Inpatient (IN) | payer OTHER ==
[2018-06-25 13:45] VITALS: BMI 24.0
[2018-06-25 14:10] VITALS: RESP 20
[2018-06-25] MEDS: oxyCODONE 10 mg ER Tab (oxyCONTIN) PO SCH (17:09)
[2018-06-25] MEDS: guaiFENesin 600 mg ER Tab PO SCH (22:14)
[2018-06-25] MEDS: Insulin Regular 100 units/ml SC SCH (22:17)
[2018-06-26] MEDS: oxyCODONE 10 mg ER Tab (oxyCONTIN) PO SCH ×3 (01:26→17:07)
[2018-06-26] MEDS: Insulin Regular 100 units/ml SC SCH ×4 (06:43→22:51)
[2018-06-26] MEDS: Enoxaparin 40 mg Syringe SC SCH (08:47)
[2018-06-26] MEDS: guaiFENesin 600 mg ER Tab PO SCH (08:49)
[2018-06-26] MEDS: Cholecalciferol 1,000 INTLU TAB PO SCH (08:51)
--- NOTE | 2018-06-26 09:06 | CP.PCM.PN ---
Subjective - Date & Time of Evaluation Date of Evaluation: 06/26/18 Time of Evaluation: 07:30 - Subjective Subjective: Patient seen and examined at bedside comfortable. Pain is well controlled. No new complaints. Tolerating PT and CPM well. Denies CP/SOB/fever/[place]. Objective - Vital Signs/Intake and Output Vital Signs (last 24 hours): Temp Pulse Resp BP Pulse Ox 99.0 F 80 20 147/61 95 06/26/18 07:37 06/26/18 07:37 06/26/18 07:37 06/26/18 07:37 06/26/18 07:37 - Medications Medications: Current Medications Acetaminophen (Tylenol 325mg Tab) 650 mg PO Q6 PRN PRN Reason: Pain, moderate (4-7) Last Admin: 06/25/18 20:29 Dose: 650 mg Atorvastatin Calcium (Lipitor) 20 mg PO HS [facility] Last Admin: 06/25/18 22:13 Dose: 20 mg Cholecalciferol (Vitamin D) 2,000 intlu PO DAILY [facility] Last Admin: 06/26/18 08:51 Dose: 2,000 intlu Docusate Sodium (Colace) 100 mg PO BID [facility] Last Admin: 06/26/18 08:48 Dose: 100 mg Duloxetine HCl (Cymbalta) 60 mg PO DAILY [facility] Last Admin: 06/26/18 08:51 Dose: 60 mg Enoxaparin Sodium (Lovenox) 40 mg SC DAILY [facility]; Protocol Last Admin: 06/26/18 08:47 Dose: 40 mg Fenofibrate (Tricor) 145 mg PO HS [facility] Last Admin: 06/25/18 22:13 Dose: 145 mg Guaifenesin (Mucinex La) 600 mg PO Q12 [facility] Last Admin: 06/26/18 08:49 Dose: 600 mg Insulin Human Regular (Humulin R) 0 units SC [facility]; Protocol Last Admin: 06/26/18 06:43 Dose: 2 u Lactulose (Enulose) 20 gm PO DAILY PRN PRN Reason: Constipation Last Admin: 06/26/18 08:51 Dose: 20 gm Metformin HCl (Glucophage) 850 mg PO BID [facility] Last Admin: 06/26/18 08:50 Dose: 850 mg Oxycodone HCl (Oxycontin Extended Release Tab) 10 mg PO Q8 [facility] Stop: 06/28/18 17:01 Last Admin: 06/26/18 08:47 Dose: 10 mg Paroxetine HCl (Paxil) 20 mg PO DAILY [facility] Last Admin: 06/26/18 08:50 Dose: 20 mg Pregabalin (Lyrica) 50 mg PO BID [facility] Last Admin: 06/26/18 08:47 Dose: 50 mg - Extremities Exam Additional comments: L knee: knee imm in place Dressings CDI sensation intact SP/DP/TN motor intact EHL/FHL/TA/G pedal pulses intact comps soft NT b/l Assessment and Plan (1) Status post total left knee replacement Assessment & Plan: POD #3 s/p L TKA -Pain well controlled -PT/OT WBAT with RW -knee imm and CPM as per order -orthopedically stable -above d/w Dr. Bledsoe in agreement Status: Acute
--- NOTE | 2018-06-26 14:33 | CP.PCM.HP ---
History of Present Illness - History of Present Illness History of Present Illness: 67 yo female with history of DM2, HTN, and OA had left TKR on 06/23/18 after failing conservative management of pain on the left knee. She did well and discharged to TCU on 06/25/18 for therapy and pain management. Present on Admission - Present on Admission Any Indicators Present on Admission: No History of DVT/PE: No History of Uncontrolled Diabetes: No Urinary Catheter: No Decubitus Ulcer Present: No Review of Systems - Review of Systems All systems: reviewed and no additional remarkable complaints except (aside from those menioned above, 12 point system review were negative by me) Past Patient History - Tetanus Immunizations Tetanus Immunization: Unknown - Past Medical History & Family History Past Medical History?: Yes Pertinent Family History: diabetes runs in the family - Past Social History Smoking Status: Current Some Days Smoker Chewing Tobacco Use: No Cigar Use: No Alcohol: None Drugs: Denies Home Situation {Lives}: With Family - CARDIAC Hx Hypercholesterolemia: Yes Hx Hypertension: Yes - PULMONARY Hx Bronchitis: Yes Hx Pneumonia: Yes - NEUROLOGICAL Other/Comment: diabetic neuropathy LLE? - HEENT Hx Cataracts: Yes - RENAL Hx Chronic Kidney Disease: No - ENDOCRINE/METABOLIC Hx Diabetes Mellitus Type 2: Yes - HEMATOLOGICAL/ONCOLOGICAL Hx Cancer: Yes (left breast) - INTEGUMENTARY Hx Dermatological Problems: No - MUSCULOSKELETAL/RHEUMATOLOGICAL Hx Arthritis: Yes (joints,hands,feet) Hx Degenerative Joint Disease: Yes Hx Falls: No - GASTROINTESTINAL Hx Gastrointestinal Disorders: No - GENITOURINARY/GYNECOLOGICAL Hx Genitourinary Disorders: No - PSYCHIATRIC Hx Psychophysiologic Disorder: No Hx Substance Use: No - SURGICAL HISTORY Hx Appendectomy: Yes Hx Breast Biopsy: Yes (left--cancer 1999) Hx Hysterectomy: Yes (partial right knee, L THR) Hx Orthopedic Surgery: Yes (left total hip,left knee partial replacement) Other/Comment: bilateral breast reduction,cancer bilateral leg. left total knee replacement - ANESTHESIA Hx Anesthesia: Yes Hx Anesthesia Reactions: No Meds Allergies/Adverse Reactions: Allergies Allergy/AdvReac Type Severity Reaction Status Date / Time No Known Allergies Allergy Verified 06/23/18 07:37 Physical Exam - Constitutional Appears: No Acute Distress - Head Exam Head Exam: ATRAUMATIC - Eye Exam Eye Exam: absent: Scleral icterus - ENT Exam ENT Exam: Mucous Membranes Moist - Neck Exam Neck exam: Negative for: Meningismus - Respiratory Exam Respiratory Exam: absent: Rales, Rhonchi, Wheezes - Cardiovascular Exam Cardiovascular Exam: REGULAR RHYTHM, +S4 - GI/Abdominal Exam GI & Abdominal Exam: Soft. absent: Tenderness - Rectal Exam Rectal Exam: Deferred - Extremities Exam Extremities exam: Negative for: full ROM (on left knee) - Back Exam Back exam: NORMAL INSPECTION - Neurological Exam Neurological exam: Alert, Oriented x3 - Psychiatric Exam Psychiatric exam: Normal Affect - Skin Skin Exam: Dry, Intact Results - Vital Signs Recent Vital Signs: Last Vital Signs Temp 99.0 F 06/26/18 07:37 Pulse 80 06/26/18 11:09 Resp 20 06/26/18 07:37 BP 140/61 06/26/18 11:09 Pulse Ox 98 06/26/18 11:09 - Labs Labs: Laboratory Results - last 24 hr 06/25/18 06/25/18 06/26/18 15:56 21:29 05:57 POC Glucose (mg/dL) 241 H 285 H 205 H Assessment & Plan - Assessment and Plan (Free Text) Assessment: 67 yo female with history of DM2, HTN, and OA had left TKR on 06/23/18 after failing conservative management of pain on the left knee. She did well and disc harged to TCU on 06/25/18 for therapy and pain management. 1. S/P Left TKR pain management PT/OT Dr Bledsoe on consult 2. DM II BS slightly elevated continue Metformin 850mg PO BID 3. HLD on Fenofibrate 4. DVT prophylaxis on Lovenox
[2018-06-27] MEDS: guaiFENesin 600 mg ER Tab PO SCH ×3 (00:35→21:29)
[2018-06-27] MEDS: oxyCODONE 10 mg ER Tab (oxyCONTIN) PO SCH ×3 (01:44→17:47)
[2018-06-27] MEDS: Insulin Regular 100 units/ml SC SCH ×4 (07:22→22:20)
--- NOTE | 2018-06-27 08:14 | CP.PCM.CON ---
History of Present Illness - History of Present Illness History of Present Illness: 67 year old female with Left total knee replacement admitted to TCU for inpatient rehab with PMH of DM, OA and HTN. Review of Systems - Musculoskeletal Musculoskeletal: Muscle Weakness Past Patient History - Tetanus Immunizations Tetanus Immunization: Unknown - Past Medical History & Family History Past Medical History?: Yes - Past Social History Smoking Status: Current Some Days Smoker Chewing Tobacco Use: No Cigar Use: No Alcohol: None Drugs: Denies Home Situation {Lives}: With Family - CARDIAC Hx Hypercholesterolemia: Yes Hx Hypertension: Yes - PULMONARY Hx Bronchitis: Yes Hx Pneumonia: Yes - NEUROLOGICAL Other/Comment: diabetic neuropathy LLE? - HEENT Hx Cataracts: Yes - RENAL Hx Chronic Kidney Disease: No - ENDOCRINE/METABOLIC Hx Diabetes Mellitus Type 2: Yes - HEMATOLOGICAL/ONCOLOGICAL Hx Cancer: Yes (left breast) - INTEGUMENTARY Hx Dermatological Problems: No - MUSCULOSKELETAL/RHEUMATOLOGICAL Hx Arthritis: Yes (joints,hands,feet) Hx Degenerative Joint Disease: Yes Hx Falls: No - GASTROINTESTINAL Hx Gastrointestinal Disorders: No - GENITOURINARY/GYNECOLOGICAL Hx Genitourinary Disorders: No - PSYCHIATRIC Hx Psychophysiologic Disorder: No Hx Substance Use: No - SURGICAL HISTORY Hx Appendectomy: Yes Hx Breast Biopsy: Yes (left--cancer 1999) Hx Hysterectomy: Yes (partial right knee, L THR) Hx Orthopedic Surgery: Yes (left total hip,left knee partial replacement) Other/Comment: bilateral breast reduction,cancer bilateral leg. left total knee replacement - ANESTHESIA Hx Anesthesia: Yes Hx Anesthesia Reactions: No Meds Allergies/Adverse Reactions: Allergies Allergy/AdvReac Type Severity Reaction Status Date / Time No Known Allergies Allergy Verified 06/23/18 07:37 - Medications Medications: Current Medications Acetaminophen (Tylenol 325mg Tab) 650 mg PO Q6 PRN PRN Reason: Pain, moderate (4-7) Last Admin: 06/26/18 23:00 Dose: 650 mg Atorvastatin Calcium (Lipitor) 20 mg PO HS [facility] Last Admin: 06/26/18 22:57 Dose: 20 mg Cholecalciferol (Vitamin D) 2,000 intlu PO DAILY [facility] Last Admin: 06/26/18 08:51 Dose: 2,000 intlu Docusate Sodium (Colace) 100 mg PO BID [facility] Last Admin: 06/26/18 17:06 Dose: 100 mg Duloxetine HCl (Cymbalta) 60 mg PO DAILY [facility] Last Admin: 06/26/18 08:51 Dose: 60 mg Enoxaparin Sodium (Lovenox) 40 mg SC DAILY [facility]; Protocol Last Admin: 06/26/18 08:47 Dose: 40 mg Fenofibrate (Tricor) 145 mg PO HS [facility] Last Admin: 06/26/18 22:57 Dose: 145 mg Guaifenesin (Mucinex La) 600 mg PO Q12 [facility] Last Admin: 06/27/18 00:35 Dose: 600 mg Insulin Human Regular (Humulin R) 0 units SC ACHS [facility]; Protocol Last Admin: 06/27/18 07:22 Dose: 2 u Lactulose (Enulose) 20 gm PO DAILY PRN PRN Reason: Constipation Last Admin: 06/26/18 08:51 Dose: 20 gm Metformin HCl (Glucophage) 850 mg PO BID [facility] Last Admin: 06/26/18 17:07 Dose: 850 mg Oxycodone HCl (Oxycontin Extended Release Tab) 10 mg PO Q8 [facility] Stop: 06/28/18 17:01 Last Admin: 06/27/18 01:44 Dose: 10 mg Paroxetine HCl (Paxil) 20 mg PO DAILY [facility] Last Admin: 06/26/18 08:50 Dose: 20 mg Pregabalin (Lyrica) 50 mg PO BID [facility] Last Admin: 06/26/18 17:07 Dose: 50 mg Physical Exam - Constitutional Appears: Well - Head Exam Head Exam: ATRAUMATIC, NORMAL INSPECTION, NORMOCEPHALIC - Eye Exam Eye Exam: EOMI, Normal appearance Pupil Exam: NORMAL ACCOMODATION, PERRL - ENT Exam ENT Exam: Mucous Membranes Moist, Normal Exam - Neck Exam Neck exam: Positive for: Normal Inspection - Respiratory Exam Respiratory Exam: Clear to Auscultation Bilateral, NORMAL BREATHING PATTERN - Cardiovascular Exam Cardiovascular Exam: REGULAR RHYTHM - GI/Abdominal Exam GI & Abdominal Exam: Normal Bowel Sounds - Rectal Exam Rectal Exam: NORMAL INSPECTION - Exam External exam: NORMAL EXTERNAL EXAM - Extremities Exam Extremities exam: Positive for: normal inspection Additional comments: left leg weakness - Back Exam Back exam: NORMAL INSPECTION - Neurological Exam Neurological exam: Alert, CN II-XII Intact - Psychiatric Exam Psychiatric exam: Normal Affect, Normal Mood - Skin Skin Exam: Dry, Normal Color Results - Vital Signs Recent Vital Signs: Last Vital Signs Temp 99.1 F 06/26/18 19:56 Pulse 81 06/26/18 19:56 Resp 20 06/26/18 19:56 BP 139/64 06/26/18 19:56 Pulse Ox 98 06/26/18 19:56 - Labs Labs: Laboratory Results - last 24 hr 06/26/18 06/26/18 06/26/18 12:05 16:05 21:04 POC Glucose (mg/dL) 289 H 212 H 163 H 06/27/18 06:31 POC Glucose (mg/dL) 218 H Assessment & Plan (1) Status post total left knee replacement Assessment and Plan: plan for physical, occupational therapy for range of motion, strengthening, transfers and gait training. Skin and pain management. Thank you for the referral. Status: Acute (2) Acute blood loss anemia Status: Acute (3) Degenerative joint disease of left hip Status: Acute (4) Primary osteoarthritis of left knee Status: Acute (5) Status post THR (total hip replacement) Status: Acute (6) Chronic cough Status: Chronic Priority: High (7) Cigarette smoker Status: Chronic Priority: High (8) Diabetes mellitus Status: Chronic
[2018-06-27] MEDS: Enoxaparin 40 mg Syringe SC SCH (09:16)
[2018-06-27] MEDS: Cholecalciferol 1,000 INTLU TAB PO SCH (09:17)
--- NOTE | 2018-06-27 12:27 | CP.PCM.PN ---
Subjective - Date & Time of Evaluation Date of Evaluation: 06/27/18 Time of Evaluation: 10:00 - Subjective Subjective: no acute complaints of any knee pain Objective - Vital Signs/Intake and Output Vital Signs (last 24 hours): Temp Pulse Resp BP Pulse Ox 99.1 F 81 20 139/64 98 06/26/18 19:56 06/26/18 19:56 06/26/18 19:56 06/26/18 19:56 06/26/18 19:56 - Medications Medications: Current Medications Acetaminophen (Tylenol 325mg Tab) 650 mg PO Q6 PRN PRN Reason: Pain, moderate (4-7) Last Admin: 06/26/18 23:00 Dose: 650 mg Atorvastatin Calcium (Lipitor) 20 mg PO HS [facility] Last Admin: 06/26/18 22:57 Dose: 20 mg Cholecalciferol (Vitamin D) 2,000 intlu PO DAILY [facility] Last Admin: 06/27/18 09:17 Dose: 2,000 intlu Docusate Sodium (Colace) 100 mg PO BID [facility] Last Admin: 06/27/18 09:16 Dose: 100 mg Duloxetine HCl (Cymbalta) 60 mg PO DAILY [facility] Last Admin: 06/27/18 09:16 Dose: 60 mg Enoxaparin Sodium (Lovenox) 40 mg SC DAILY [facility]; Protocol Last Admin: 06/27/18 09:16 Dose: 40 mg Fenofibrate (Tricor) 145 mg PO [facility] Last Admin: 06/26/18 22:57 Dose: 145 mg Guaifenesin (Mucinex La) 600 mg PO Q12 [facility] Last Admin: 06/27/18 09:16 Dose: 600 mg Insulin Human Regular (Humulin R) 0 units SC [facility]; Protocol Last Admin: 06/27/18 12:17 Dose: 4 u Lactulose (Enulose) 20 gm PO DAILY PRN PRN Reason: Constipation Last Admin: 06/27/18 09:18 Dose: 20 gm Metformin HCl (Glucophage) 850 mg PO BID [facility] Last Admin: 06/27/18 09:16 Dose: 850 mg Oxycodone HCl (Oxycontin Extended Release Tab) 10 mg PO Q8 [facility] Stop: 06/28/18 17:01 Last Admin: 06/27/18 09:20 Dose: 10 mg Paroxetine HCl (Paxil) 20 mg PO DAILY [facility] Last Admin: 06/27/18 09:17 Dose: 20 mg Pregabalin (Lyrica) 50 mg PO BID [facility] Last Admin: 06/27/18 09:21 Dose: 50 mg - Head Exam Head Exam: ATRAUMATIC, NORMAL INSPECTION, NORMOCEPHALIC - Eye Exam Eye Exam: EOMI, Normal appearance, PERRL Pupil Exam: NORMAL ACCOMODATION - ENT Exam ENT Exam: Mucous Membranes Moist, Normal Exam - Neck Exam Neck Exam: Full ROM, Normal Inspection - Respiratory Exam Respiratory Exam: Clear to Ausculation Bilateral, NORMAL BREATHING PATTERN - Cardiovascular Exam Cardiovascular Exam: REGULAR RHYTHM - GI/Abdominal Exam GI & Abdominal Exam: Soft, Normal Bowel Sounds - Rectal Exam Rectal Exam: NORMAL INSPECTION - Exam External exam: NORMAL EXTERNAL EXAM - Extremities Exam Extremities Exam: Full ROM, Normal Capillary Refill, Normal Inspection - Back Exam Back Exam: NORMAL INSPECTION - Neurological Exam Neurological Exam: Alert, Awake Neuro motor strength exam: Left Lower Extremity: 3 - Psychiatric Exam Psychiatric exam: Normal Affect, Normal Mood - Skin Skin Exam: Dry, Normal Color Assessment and Plan (1) Status post total left knee replacement Assessment & Plan: plan for physical, occupational therapy monitor pain, equipment eval Status: Acute (2) Acute blood loss anemia Status: Acute (3) Degenerative joint disease of left hip Status: Acute (4) Primary osteoarthritis of left knee Status: Acute (5) Status post THR (total hip replacement) Status: Acute (6) Chronic cough Status: Chronic (7) Cigarette smoker Status: Chronic (8) Diabetes mellitus Status: Chronic
[2018-06-27 19:58] VITALS: O2SAT 95
[2018-06-28] MEDS: oxyCODONE 10 mg ER Tab (oxyCONTIN) PO SCH ×2 (00:16→08:11)
[2018-06-28] MEDS: Insulin Regular 100 units/ml SC SCH ×2 (06:54→11:46)
[2018-06-28] MEDS: Enoxaparin 40 mg Syringe SC SCH (08:12)
[2018-06-28] MEDS: guaiFENesin 600 mg ER Tab PO SCH (08:13)
[2018-06-28] MEDS: Cholecalciferol 1,000 INTLU TAB PO SCH (08:13)
[2018-06-28 09:57] VITALS: BP 130/56; PULSE 73; TEMP 97.9
[2018-06-28] MEDS ORDERED: Povidone Iodine Topical 10% Sol ONE (10:16)
[2018-06-28 11:14] LABS: BASO % 0.7 % (0.0-2.0); EOS # 0.1 K/uL (0.0-0.7); EOS % 1.1 % (0.0-4.0); HEMOGLOBIN 10.8 g/dL (12.0-16.0); LYMPH # 1.5 K/uL (1.0-4.3); LYMPH % 23.2 % (20.0-40.0); MEAN CELL VOLUME 96.3 fl (81.0-99.0); MEAN CORPUSCULAR HEMOGLOBIN 32.2 pg (27.0-31.0); MEAN CORPUSCULAR HGB CONC 33.4 g/dL (33.0-37.0); MEAN PLATELET VOLUME 8.7 fl (7.2-11.7); MONO # 0.8 K/uL (0.0-0.8); MONO % 12.9 % (0.0-10.0); NEUT # 3.9 K/uL (1.8-7.0); NEUT % 62.1 % (50.0-75.0); RBC 3.37 Mil/uL (3.80-5.20); WHITE BLOOD COUNT 6.3 K/uL (4.8-10.8)
--- NOTE | 2018-06-28 12:58 | CP.PCM.DIS ---
Provider - Provider Date of Admission: 06/25/18 13:45 Attending physician: Uriel Mcgrath MD Primary care physician: Ji Bledsoe III, MD Consults: Dr Gabriel Time Spent in preparation of Discharge (in minutes): 25 Diagnosis - Discharge Diagnosis (1) Status post total left knee replacement Status: Acute Comment: continue pain medication at home with Lyrica and Oxycodone as needed. will continue therapy as outpatient. as per Dr Bledsoe patient could go home with Levaquin 500mg PO daily and he would see her next week. (2) Diabetes mellitus Status: Chronic Comment: continue Metformin 850mg PO BID Hospital Course - Lab Results Lab Results: Most Recent Lab Values WBC 6.3 K/uL (4.8-10.8) 06/28/18 10:20 RBC 3.37 Mil/uL (3.80-5.20) L 06/28/18 10:20 Hgb 10.8 g/dL (12.0-16.0) L 06/28/18 10:20 Hct 32.5 % (34.0-47.0) L 06/28/18 10:20 MCV 96.3 fl (81.0-99.0) 06/28/18 10:20 MCH 32.2 pg (27.0-31.0) H 06/28/18 10:20 MCHC 33.4 g/dL (33.0-37.0) 06/28/18 10:20 RDW 13.0 % (11.5-14.5) 06/28/18 10:20 Plt Count 299 K/uL (130-400) 06/28/18 10:20 MPV 8.7 fl (7.2-11.7) 06/28/18 10:20 Neut % (Auto) 62.1 % (50.0-75.0) 06/28/18 10:20 Lymph % (Auto) 23.2 % (20.0-40.0) 06/28/18 10:20 Fleming % (Auto) 12.9 % (0.0-10.0) H 06/28/18 10:20 Eos % (Auto) 1.1 % (0.0-4.0) 06/28/18 10:20 Baso % (Auto) 0.7 % (0.0-2.0) 06/28/18 10:20 Neut # (Auto) 3.9 K/uL (1.8-7.0) 06/28/18 10:20 Lymph # (Auto) 1.5 K/uL (1.0-4.3) 06/28/18 10:20 Fleming # (Auto) 0.8 K/uL (0.0-0.8) 06/28/18 10:20 Eos # (Auto) 0.1 K/uL (0.0-0.7) 06/28/18 10:20 Baso # (Auto) 0.0 K/uL (0.0-0.2) 06/28/18 10:20 POC Glucose (mg/dL) 291 mg/dL (65-110) H 06/28/18 10:58 - Hospital Course Hospital Course: 67 yo female with history of DM2, HTN and OA had left TKR on 06/23/18 after failing conservative management for pain on the left knee. She did well and discharged to TCU on 06/25/18 for therapy and pain management. Patient completed in patient therapy and now is ready to go home. She will continue therapy as outpatient. Discharge Exam - Head Exam Head Exam: ATRAUMATIC, NORMAL INSPECTION, NORMOCEPHALIC - Eye Exam Eye Exam: absent: Scleral icterus - ENT Exam ENT Exam: Mucous Membranes Moist - Respiratory Exam Respiratory Exam: absent: Rales, Rhonchi, Wheezes, Respiratory Distress - Cardiovascular Exam Cardiovascular Exam: REGULAR RHYTHM, +S1, +S2 - GI/Abdominal Exam GI & Abdominal Exam: Soft. absent: Tenderness - Rectal Exam Rectal Exam: Deferred - Extremities Exam Extremities exam: joint swelling (left knee slightly swollen, warm to touch and erythematous; myriam intact, no secretions noted) - Back Exam Back exam: NORMAL INSPECTION - Neurological Exam Neurological exam: Alert, Oriented x3 - Psychiatric Exam Psychiatric exam: Normal Affect - Skin Skin Exam: Dry, Intact Discharge Plan - Discharge Medications Prescriptions: Levofloxacin [Levaquin] 500 mg PO DAILY #10 tablet Oxycodone HCl [Oxycodone HCl ER] 10 mg PO Q12 PRN #10 tab.er.12h PRN Reason: Pain, Moderate (4-7) Pregabalin [Lyrica] 50 mg PO BID #28 cap - Follow Up Plan Condition: GOOD Disposition: HOME/ ROUTINE Instructions: Total Knee Replacement (DC) Referrals: Ji Bledsoe III, MD [Primary Care Provider] -
== END 2018-06-28 14:55 | disposition home or self-care (01) | DRG 560 ==
LOC: H.TCU 13:45
PROC: F07Z9FZ Gait Training/Functional Ambulation Treatment using Assistive, Adaptive, Supportive or Protective Equipment (ICD-10-PCS; principal; 2018-06-25)
PROC: F08Z4FZ Home Management Treatment using Assistive, Adaptive, Supportive or Protective Equipment (ICD-10-PCS; 2018-06-25)
PROC: F07L6FZ Therapeutic Exercise Treatment of Musculoskeletal System - Lower Back / Lower Extremity using Assistive, Adaptive, Supportive or Protective Equipment (ICD-10-PCS; 2018-06-26)
DX: Z47.1 Aftercare following joint replacement surgery (principal); D62 Acute posthemorrhagic anemia; Z96.652 Presence of left artificial knee joint; M17.12 Unilateral primary osteoarthritis, left knee; M16.12 Unilateral primary osteoarthritis, left hip; Z96.642 Presence of left artificial hip joint; E11.9 Type 2 diabetes mellitus without complications; E78.5 Hyperlipidemia, unspecified; E78.00 Pure hypercholesterolemia, unspecified; I10 Essential (primary) hypertension; R05 Cough; F17.210 Nicotine dependence, cigarettes, uncomplicated; Z79.84 Long term (current) use of oral hypoglycemic drugs; Z87.01 Personal history of pneumonia (recurrent); Z90.710 Acquired absence of both cervix and uterus